=== PATIENT | female | born 1950 | race Caucasian/White ===

== ENCOUNTER → 2017-10-05 | Outpatient (CLI) | payer OTHER | END | disposition home or self-care (01) | LOC: C.LAB1850 11:06 | PROVIDERS: ATTEND Family Medicine | DX: E78.5 Hyperlipidemia, unspecified (principal) ==

== ENCOUNTER 2024-03-23 16:20 | Inpatient (IN) ==
[2024-03-23 17:03] LABS: Basophils # (auto) 0.07 K/uL (0.00-0.20); Basophils % (auto) 0.9 %; Eosinophils # (auto) 0.16 K/uL (0.00-0.50); Hematocrit (blood only) 39.7 % (37.0-47.0); Hemoglobin 13.4 g/dl (12.0-16.0); Immature Granulocytes # (auto) 0.02 K/uL (0.01-0.20); Immature Granulocytes % (auto) 0.2 %; Lymphocytes # (auto) 1.17 K/uL (1.20-3.40); Lymphocytes % (auto) 14.3 %; Mean Corpuscular Hemoglobin 30.9 pg (25.0-34.0); Mean Corpuscular Hgb Conc 33.8 g/dL (32.0-36.0); Mean Corpuscular Volume 91.5 fL (80.0-100.0); Mean Platelet Volume 11.2 fL (9.4-12.4); Monocytes # (auto) 0.54 K/uL (0.11-0.59); Monocytes % (auto) 6.6 %; Neutrophils # (auto) 6.21 K/uL (1.40-6.50); Platelet Count 212 K/uL (130-400); RDW Coefficient of Variation 12.4 % (11.5-14.5); RDW Standard Deviation 41.4 fL (36.4-46.3); Red Blood Count 4.34 M/uL (4.20-5.40); White Blood Count 8.17 K/ul (4.8-10.8)
--- NOTE | 2024-03-23 17:16 | Emergency Department Note ---
Impression & Plan Non-STEMI (non-ST elevated myocardial infarction), Hypertensive emergency ED Provider Note NAME: CJ ALTMAN AGE: 73 SEX: F : 1950 ARRIVES VIA: Walk-In INFORMANT: Patient, ED PROVIDER(S): Christelle Adorno MD CHIEF COMPLAINT: Hypertension HPI: This is a 73-year-old present for hypertension. Patient notes that around noon she had 1.5 hours worth of vertigo type symptoms, nausea without vomiting. She contacted her PCP who recommend she come to the ER to be seen for her elevated blood pressure. She reports the last week she was seen in the outpatient office and had blood pressure in the 180s started on lisinopril. She reports no current headache, vertigo. She does note slight nausea. No chest pain or shortness of breath. ROS: See above HPI for pertinent positives & negatives. A total of 10 systems reviewed and were otherwise negative. PAST MEDICAL HISTORY: See Below PAST SURGICAL HISTORY: See Below FAMILY HISTORY: See Below SOCIAL HISTORY: See Below HOME MEDICATIONS: See Below ALLERGIES: See Below VITALS: See Below PHYSICAL EXAMINATION: General: resting comfortably in no acute distress Head: Normocephalic and atraumatic Eyes: Normal inspection, extraocular muscles intact Ear, nose, throat: Normal external exam Neck: Normal range of motion Respiratory: lungs clear to auscultation bilaterally Cardiovascular: Regular rate/rhythm, no murmur GI: soft, nontender, no guarding or rebound Extremities: nontender, moves all extremities Neuro: The patient awake and alert, appropriately conversive, no focal deficits, symmetric faces, cranial 2 through 12 grossly intact Skin: Warm, dry, and intact MEDICAL DECISION MAKING: This is a 73-year-old female presenting for hypertension. Patient notes symptoms of vertigo initially, now persistent nausea without vomiting. She otherwise mentions she feels "off "but cannot elucidate further. Will do screening workup for hypertensive emergency such as stroke, press, ACS -Patient blood pressure has been elevated x 2 to over 220s systolic, consider hypertensive emergency. -ECG independently interpreted by me with sinus rhythm, rate of 91, left axis deviation, normal MN, normal QRS, normal QTc, no ST segment elevations consistent with STEMI criteria, T wave inversions in leads II and aVL depressions, ST elevation in leads III and aVF. Overall similar to EKG in 2020 -The blood work is reviewed showing no leukocytosis or anemia. Electrolyte within normal limits. -Patient's troponin is significant elevated to 685. -Due to patient presents, will start labetalol as well as heparin due to likely NSTEMI -[facility] care [facility] Differential diagnosis: Hypertension, stroke, press, ACS ER treatment provided: See below Independent History obtained from: [facility] interpreted by me: ECG: None Cardiac Monitoring: An order was placed for continuous cardiac monitoring. The monitor shows a rate of 82 with sinus rhythm. Laboratory studies: As stated above and show below. Imaging studies: See below. Critical Care Note: I have personally spent 33 minutes of critical care time in the direct management of this patient. This includes bedside care, interpretation of diagnostic studies, and testing, discussion with consultants, patient, and family members, and other required patient management activities. This 33 minutes is in excess of all separately billable procedures. 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) Murmur (Chronic) Medical History (Updated 03/23/24 @ 23:34 by Christelle Adorno MD) Elevated BP without diagnosis of hypertension Surgical History S/P cholecystectomy S/P hysterectomy S/P wisdom tooth extraction Family History Mother Hypertension Father Hypertension Denies family history of Ovarian cancer Prostate cancer Myocardial infarction Breast cancer Colorectal cancer Social History Smoking Status: Never smoker Second Hand Exposure: No; Do You Dip or Chew Tobacco: No; Hx Alcohol Use: No Hx Substance Use: No Preferred Language: Ken[place] Communication Ability: Effective Visual Impairment: No Limitations Hearing Ability: Normal Rn Sexual Assault Required: No Beliefs That Will Affect Care: None marital status: Current Living Situation: Spouse Current Living Situation Comment: lives at home with current occupational status: retired 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 Other Information That Helps Us Care for You: No Feels Safe at Home: Yes Safety Concerns: Feels Safe At This Time Childhood Exposure to Second-Hand Smoke: Yes Diet: regular Dental Care, Regularly: Yes Physical Activity Frequency: Does not Exercise Seatbelt Use: always Sunscreen Use: Yes Assistive Devices: Denture - Upper and Glasses Allergies Allergies Allergy/AdvReac Type Severity Reaction Status Date / Time Penicillins AdvReac Severe Hives Verified 03/23/24 20:36 Home Meds Home Medications Medication Instructions Recorded Confirmed lisinopril 10 mg tablet 10 mg PO QAM 03/23/24 03/23/24 Previous Rx's Medication Instructions Recorded sertraline 50 mg tablet 50 mg PO DAILY #30 tabs 12/17/23 Results & Data (ED) Vital Signs Vital Signs - 24 hr 03/23/24 16:23 03/23/24 16:41 03/23/24 16:49 Temperature 36.2 C L Temperature Source Temporal Artery Scan Pulse Rate 99 H 89 Pulse Rate [Finger] 92 H Pulse Rhythm Pulse Rhythm [Finger] Regular Pulse Strength [Finger] Normal Respiratory Rate 20 20 Respiratory Effort / Characteristics Non-Labored Respiratory Depth Normal Blood Pressure 222/97 H Blood Pressure [Right Arm] 226/112 H Blood Pressure Mean 138 Blood Pressure Mean [Right Arm] 150 Pulse Oximetry 97 96 Oxygen Delivery Method Room Air Room Air Sepsis Recent Fever Within 48 Hours No Sepsis New/Unexplained Change in Mental Status No Sepsis Action Taken by Nursing No Action Required 03/23/24 16:53 03/23/24 17:57 03/23/24 18:36 Temperature Temperature Source Pulse Rate 87 86 68 Pulse Rate [Finger] Pulse Rhythm Regular Pulse Rhythm [Finger] Pulse Strength [Finger] Respiratory Rate 20 Respiratory Effort / Characteristics Respiratory Depth Blood Pressure 198/110 H 238/103 H Blood Pressure [Right Arm] Blood Pressure Mean Blood Pressure Mean [Right Arm] Pulse Oximetry 95 Oxygen Delivery Method Room Air Sepsis Recent Fever Within 48 Hours Sepsis New/Unexplained Change in Mental Status Sepsis Action Taken by Nursing Laboratory Data 03/23/24 16:46 03/23/24 16:46 Lab Results 03/23/24 Range/Units 16:46 WBC 8.17 (4.8-10.8) K/ul RBC 4.34 (4.20-5.40) M/uL Hgb 13.4 (12.0-16.0) g/dl Hct 39.7 (37.0-47.0) % MCV 91.5 (80.0-100.0) fL MCH 30.9 (25.0-34.0) pg MCHC 33.8 (32.0-36.0) g/dL RDW Std Deviation 41.4 (36.4-46.3) fL RDW Coeff of [place] 12.4 (11.5-14.5) % Plt Count 212 (130-400) K/uL MPV 11.2 (9.4-12.4) fL Immature Gran % (Auto) 0.2 % Neut % (Auto) 76.0 % Lymph % (Auto) 14.3 % [place] % (Auto) 6.6 % Eos % (Auto) 2.0 % Baso % (Auto) 0.9 % Neut # (Auto) 6.21 (1.40-6.50) K/uL Lymph # (Auto) 1.17 L (1.20-3.40) K/uL [place] # (Auto) 0.54 (0.11-0.59) K/uL Eos # (Auto) 0.16 (0.00-0.50) K/uL Baso # (Auto) 0.07 (0.00-0.20) K/uL Immature Gran # (Auto) 0.02 (0.01-0.20) K/uL PT 10.8 (9.0-12.0) Seconds INR 1.0 (0.9-1.1) Sodium 139 (136-145) mmol/L Potassium 4.5 (3.5-5.1) mmol/L Chloride 108 H (98-107) mmol/L Carbon Dioxide 23 (21-32) mmol/L Anion Gap 8 (3-11) BUN 25 H (6-23) mg/dl Creatinine 1.04 (0.6-1.2) mg/dl Est Cr Clr Drug Dosing 53.1 ml/min Est GFR ( Amer) 62.6 ml/min Est GFR (Non-Af Amer) 54.0 ml/min BUN/Creatinine Ratio 24.0 H (10-20) Glucose 124 H (70-99(Fasting)) mg/dl Calcium 9.8 (8.6-10.3) mg/dl Total Bilirubin 0.8 (0.2-1.0) mg/dl AST 26 (13-39) U/L ALT 21 (7-52) U/L Alkaline Phosphatase 61 (34-104) U/L Troponin I High Sens 685.6 H* (0-14) pg/ml Total Protein 7.4 (6.0-8.3) gm/dl Albumin 4.9 (3.4-5.0) gm/dl Globulin 2.5 (2.5-4.0) gm/dl Albumin/Globulin Ratio 2.0 (0.9-2) Administered Medications Atorvastatin Calcium (Atorvastatin 40 Mg Tab) 80 mg PO QAM [facility] Stop: 04/22/24 20:23 Last Admin: 03/23/24 21:37 Dose: 80 mg Documented By: SHERIN Heparin Sodium/Dextrose (Heparin Sodium/Dextrose) 25,000 units in 500 mls @ 16 mls/hr IV .Q24H [facility]; Protocol Stop: 04/22/24 17:59 Last Admin: 03/23/24 18:03 Dose: 800 units/hr, 16 mls/hr Documented By: JOSE Co-signed By: CHIP Metoprolol Tartrate (Metoprolol Tartrate 25 Mg Tab) 25 mg PO BID [facility] Stop: 04/22/24 20:23 Last Admin: 03/23/24 21:40 Dose: 25 mg Documented By: Admin: 03/23/24 21:37 Dose: 25 mg Documented By: DEBBY Sertraline HCl (Sertraline Hcl 50 Mg Tablet) 50 mg PO DAILY [facility] Stop: 04/23/24 08:59 Last Admin: 03/23/24 21:38 Dose: 50 mg Documented By: DEBBY Discontinued Medications Aspirin (Aspirin 81 Mg Chew) 324 mg PO NOW STA Stop: 03/23/24 20:25 Last Admin: 03/23/24 21:39 Dose: 324 mg Documented By: DEBBY Heparin Sodium (Porcine) (Heparin Sod (Porcine) 1000 Unit/Ml) 4,000 units IV NOW ONE Stop: 03/23/24 17:55 Last Admin: 03/23/24 18:04 Dose: 4,000 units Documented By: JOSE Co-signed By: CHIP Labetalol HCl (Labetalol Hcl Iv 5 Mg/Ml 20ml) 10 mg IV NOW STA Stop: 03/23/24 17:39 Last Admin: 03/23/24 17:57 Dose: 10 mg Documented By: JOSE Imaging Data Radiologist's Impression: Chest X-Ray 03/23/24 16:43 XR chest 1V portable HISTORY: 73 years-old Female Hypertension acute hypertension COMPARISON: None TECHNIQUE: AP view of the chest FINDINGS: Cardiac silhouette is enlarged. No pneumothorax, or pleural effusion. The lungs are generally clear with mild bibasilar atelectasis. Cholecystectomy. Bones appear grossly intact. IMPRESSION: Cardiomegaly without acute process. ACT 112: Negative or not required by law. The above report was generated using voice recognition software. It may contain grammatical, syntax or spelling errors. Electronically signed by: Oj Love M.D. 03/23/2024 5:[address] 03/23/24 17:13 CT head/brain wo con CLINICAL HISTORY: 73 years-old Female with vertigo, htn. Hypertension with vertigo TECHNIQUE: Multiple axial CT images of the head were obtained without contrast. A dose lowering technique was utilized adhering to the principles of ALARA. CT DOSE: 547.75 mGy.cm COMPARISON: None. FINDINGS: No acute intracranial hemorrhage, midline shift, intracranial mass, hydrocephalus, territorial ischemia or abnormal extra-axial collection. Involutional changes with chronic microvascular ischemic disease. Calcifications of the falx cerebri. The calvarium is intact. The paranasal sinuses, mastoid air cells, and middle ear cavities are clear. IMPRESSION: No acute intracranial abnormality. ACT 112: Negative or not required by law. The above report was generated using voice recognition software. It may contain grammatical, syntax or spelling errors. Electronically signed by: Oj Love M.D. 03/23/2024 6:44 PM Discharge Plan Visit Data Chief Complaint: Hypertension Stated Complaint: HIGH BP, DIZZY, NAUSEA ED Provider: Christelle Adorno Discharge Problem: Non-STEMI (non-ST elevated myocardial infarction), Hypertensive emergency Patient Disposition: Admitted As Inpatient Discharge Instructions Interventions: ED Discharge Assessment Last Done: 03/23/24 20:09
[2024-03-23 17:19] LABS: Albumin Level 4.9 gm/dl (3.4-5.0); Bilirubin,Total 0.8 mg/dl (0.2-1.0); Calcium 9.8 mg/dl (8.6-10.3); Creatinine Clr Calc Pharmacy 53.1 ml/min; Est GFR (African American) 62.6 ml/min; Globulin 2.5 gm/dl (2.5-4.0); Potassium 4.5 mmol/L (3.5-5.1); Total Protein 7.4 gm/dl (6.0-8.3)
[2024-03-23 17:33] LABS: Troponin I High Sensitivity 685.6 pg/ml (0-14)
--- NOTE | 2024-03-23 17:36 | XRay Report ---
XR chest 1V portable HISTORY: 73 years-old Female Hypertension acute hypertension COMPARISON: None TECHNIQUE: AP view of the chest FINDINGS: Cardiac silhouette is enlarged. No pneumothorax, or pleural effusion. The lungs are generally clear w ith mild bibasilar atelectasis. Cholecystectomy. Bones appear grossly intact. IMPRESSION: Cardiomegaly without acute process. ACT 112: Negative or not required by law. The above report was generated using voice recognition software. It may contain grammatical, syntax o r spelling errors. Electronically signed by: Oj Love M.D. 03/23/2024 5:35 PM
[2024-03-23] MEDS ORDERED: Heparin IV Adult Wt-Based Low-Dose w/ INITIAL Bolus Protocol IV STA (17:38)
[2024-03-23] MEDS ORDERED: HEPARIN SOD (PORCINE) 1000 UNIT/ML IV ONE (17:54)
[2024-03-23] MEDS: LABETALOL HCL IV 5 MG/ML 20ML IV STA (17:57)
[2024-03-23] MEDS: HEPARIN SODIUM/DEXTROSE 25,000 UNITS/500 ML BAG IV SCH (18:03)
[2024-03-23] MEDS: HEPARIN SOD (PORCINE) 1000 UNIT/ML IV ONE (18:04)
[2024-03-23 18:13] LABS: Prothrombin Time 10.8 Seconds (9.0-12.0)
--- NOTE | 2024-03-23 18:46 | History & Physical Report ---
Date of Service March 23, 2024 Assessment & Plan (1) Non-STEMI (non-ST elevated myocardial infarction): (2) Uncontrolled hypertension: (3) Hypertrophic cardiomyopathy: (4) Hyperglycemia: (5) Hyperlipidemia: Plan Patient 73-year-old female is critically ill with laboratory evidence of non- STEMI with elevated troponins. Patient requires hospital level care IV medications, continuous monitoring and specialty consultation. Admit to a monitored unit Continue IV heparin Start Lopressor orally scheduled, as needed IV metoprolol Aspirin, statin, continue patient's prior to admission lisinopril, increase dose to 20 mg Echocardiogram Cardiology consultation Check hemoglobin A1c, lipid panel Follow-up head CT results Discussed advanced directives with patient, requests full code History of Present Illness Chief Complaint: Dizziness and nausea and elevated blood pressure Primary Care Provider: Daysi Benson DO Patient is a 73-year-old female who presents to the emergency room with above complaint. Patient has known she has had some high blood pressure for almost a year. Just established a new primary care provider this month and was started on lisinopril for elevated blood pressure. Today she could tell that something just was not right. She felt a little dizzy felt a little nauseated and had her neighbor bring her to the emergency room. In the emergency room was noted to be quite hypertensive and a significantly elevated troponin. She referred to our service for further evaluation. Time my evaluation patient states that her dizziness is somewhat better but still little nauseated. She denies any shortness of breath or chest pain. She states the symptoms started suddenly today. Yesterday and prior to she was eating and drinking well. Doing her usual activities. No new problems with her bowels or bladder. No swollen or tender joints. No swelling in her hands arms legs or feet. She denies any upper respiratory infection symptoms. She is aware that she has a hypertrophic cardiomyopathy. Has not had that followed up for a few years. She does state that she has a younger brother who just recently of some sort of heart issue she was not sure of the details. She has never smoked does not use any significant amounts of alcohol. Allergies Allergy/AdvReac Type Severity Reaction Status Date / Time Penicillins AdvReac Severe Hives Uncoded 03/23/24 18:17 Home Medications Medication Instructions Recorded Confirmed Type sertraline 50 mg tablet 50 mg PO DAILY #30 tabs 12/17/23 03/23/24 Rx lisinopril 10 mg tablet 10 mg PO QAM 03/23/24 03/23/24 History Past Med/Surg History Problem List (Updated 03/23/24 @ 18:44 by Christopher Lehman DO) Uncontrolled hypertension Non-STEMI (non-ST elevated myocardial infarction) HTN, goal below 140/90 Hyperglycemia Anxiety (Chronic) Hypertrophic cardiomyopathy (Chronic) Hyperlipidemia (Chronic) 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) Murmur (Chronic) Medical History (Updated 03/23/24 @ 18:44 by Christopher Lehman DO) Elevated BP without diagnosis of hypertension Surgical History S/P cholecystectomy S/P hysterectomy S/P wisdom tooth extraction Family History Mother Hypertension Father Hypertension Denies family history of Ovarian cancer Prostate cancer Myocardial infarction Breast cancer Colorectal cancer Social History Smoking Status: Never smoker Second Hand Exposure: No; Do You Dip or Chew Tobacco: No; Hx Alcohol Use: No Hx Substance Use: No Preferred Language: B[place] Communication Ability: Effective Visual Impairment: No Limitations Hearing Ability: Normal marital status: Current Living Situation: Spouse current occupational status: retired 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 Sclera clear Neck: Soft, no adenopathy Lungs: Clear to auscultation, decreased, no wheezes rales or rhonchi CV: S1-S2, regular, grade 4/6 blowing systolic murmur Abdomen: Soft, nontender, nondistended Extremities: No significant edema Musculoskeletal: No significant joint tenderness Neuro: No focal deficits Psych: Cooperative, normal mood Results & Data Results & Data Vital Signs (Past 12 Hours) Vital Signs Temp Pulse Pulse Resp BP BP Pulse Ox 08/14/24 17:57 86 198/110 H 03/23/24 16:53 87 20 95 03/23/24 16:49 89 03/23/24 16:41 92 H 20 226/112 H 96 03/23/24 16:23 36.2 C L 99 H 20 222/97 H 97 O2 Del Method 03/23/24 17:57 03/23/24 16:53 Room Air 03/23/24 16:49 03/23/24 16:41 Room Air 03/23/24 16:23 Room Air Diagnostic Findings Reviewed imaging, laboratory and diagnostic studies. Pertinent findings as below. Personally reviewed chest x-ray imaging, no acute consolidation, cardiomegaly Personally reviewed EKG sinus rhythm with sinus arrhythmia, left ventricular hypertrophy, left axis deviation Glucose 124 Initial troponin 685.6 Code Status & VTE Plan VTE Prophylaxis Plan VTE Prophylaxis will be ordered: Yes
--- NOTE | 2024-03-23 18:47 | CT Scan Report ---
CT head/brain wo con CLINICAL HISTORY: 73 years-old Female with vertigo, htn. Hypertension with vertigo TECHNIQUE: Multiple axial CT images of the head were obtained without contrast. A dose lowering tech nique was utilized adhering to the principles of ALARA. CT DOSE: 547.75 mGy.cm COMPARISON: None. FINDINGS: No acute intracranial hemorrhage, midline shift, intracranial mass, hydrocephalus, territorial ischem ia or abnormal extra-axial collection. Involutional changes with chronic microvascular ischemic disea se. Calcifications of the falx cerebri. The calvarium is intact. The paranasal sinuses, mastoid air cells, and middle ear cavities are clear . IMPRESSION: No acute intracranial abnormality. ACT 112: Negative or not required by law. The above report was generated using voice recognition software. It may contain grammatical, syntax o r spelling errors. Electronically signed by: Oj Love M.D. 03/23/2024 6:44 PM
[2024-03-23] MEDS ORDERED: ACETAMINOPHEN 325 MG TAB PO PRN (20:24)
[2024-03-23] MEDS ORDERED: MoRPHine SULFATE 2 MG/ML CARP IV PRN (20:24)
[2024-03-23] MEDS ORDERED: ONDANSETRON INJ 2 MG/ML 2 ML VIAL IV PRN (20:24)
[2024-03-23] MEDS ORDERED: NITROGLYCERIN SL 0.4 MG/TAB TAB SL PRN (20:24)
[2024-03-23] MEDS ORDERED: MAGNESIUM HYDROXIDE SUSP 30 ML UDC PO PRN (20:24)
[2024-03-23] MEDS: METOPROLOL TARTRATE 25 MG TAB PO SCH (21:37)
[2024-03-23] MEDS: ATORVASTATIN 40 MG TAB PO SCH (21:37)
[2024-03-23] MEDS: SERTRALINE HCL 50 MG TABLET PO SCH (21:38)
[2024-03-23] MEDS: ASPIRIN 81 MG CHEW PO STA (21:39)
[2024-03-24] MEDS: METOPROLOL TARTRATE 1 MG/ML VIAL IV PRN (01:16)
[2024-03-24 01:32] LABS: ANTI-Xa, UFH(UnfractionatedHep 0.41 IU/ml (0.3-0.7)
[2024-03-24] MEDS: lisinopril 20 MG TAB PO STA (02:10)
--- OUTSIDE RECORDS SUMMARY | 2024-03-24 03:00 | External Medical Summary | Summary of Care ---
Author Name Unknown Organization [facility] Address [address] [place] [address] Phone [phone] Care Team Providers Care Timber Inspector Name Role Phone Daysi Benson DO Primary Care Provider [phone] Reason for Referral * Precert (Within 10 days (routine)) - Authorized Specialty Diagnoses / Procedures Referred By Contac t Referred To Contact Cardiac Studies Diagnoses HTN, goal below 140/90 Heart murmur Procedures ECHO, COMPLETE (2D), TRANS-THORACIC Daysi Benson DO [address] [place] [address] Referral ID Status Reason Start Date Expiration Date V isits Requested Visits Authorized [id number] Authorized Precert 03/14/2024 999 999 Reason for Visit * Reason Comments NEW PATIENT Encounter Details Date Type Department Care Team (Latest Contact Info) Description 03/14/2024 10:40 AM EDT Office Visit Family Practice [address] [facility], [place] [address] [place] [address] Daysi Benson DO [address] [place] [address] Dysuria*; HTN, goal below 140/90; Heart murmur; Caregiver stress; Screening for cardiovascular condition; Risk and functional assessment Allergies Active Allergy Reactions Criticality Noted Date Comments Penicillins Hives High 10/09/2014 documented as of this encounter (statuses as of 03/15/2024) Medications Medication Sig Dispensed Refills Start Date End Date Status Sertraline HCl 50 MG Oral Tablet (Zoloft) Take 1 Tablet by mouth every evening. 02/14/2023 Active Sulfamethoxazole- Trimethoprim 800-160 MG Oral Tablet (Bactrim DS)Indications:Dy suria Take 1 Tablet by mouth in the morning and 1 Tablet before bedtime. Do all this for 3 days. Until gone. 6 Tablet 03/14/2024 03/17/2024 Active Lisinopril 10 MG Oral Tablet (Prinivil)Indicat ions:HTN, goal below 140/90 Take 1 Tablet by mouth in the morning. 30 Tablet 1 03/14/2024 Active Meloxicam 15 MG Oral TabletIndications :Sacroiliitis (HCC) Take 1 Tablet by mouth in the morning. 30 Tablet 2 01/01/2024 03/14/2024 Discontinued (Medication List Clean Up) predniSONE 20 MG Oral Tablet (Deltasone)Indica tions:Allergic contact dermatitis due to plants, except food Take 2 tablets by mouth once daily x 2 days, then 1 tablet by mouth once daily x 2 days, then 1/2 tablet by mouth once daily x 2 days. 7 Tablet 01/14/2024 03/14/2024 Discontinued (Medication List Clean Up) documented as of this encounter (statuses as of 03/15/2024) Active Problems Problem Noted Date Diagnosed Date HTN, goal below 140/90 03/14/2024 documented as of this encounter (statuses as of 03/15/2024) Immunizations Name Administration Dates Next Due TDAP (age 10 and older)(Boostrix) 12/25/2014 documented as of this encounter Social History Tobacco Use Types Packs/Day Years Used Date Smoking Tobacco: Never Smokeless Tobacco: Never Tobacco Cessation:Counseling Given: Yes Alcohol Use Standard Drinks/Week Comments No 0 (1 standard drink = 0.6 oz pur e alcohol) PHQ-2 Answer Date Recorded PHQ Adult Total Score 3 03/14/2024 Hunger Vital Sign Answer Date Recorded Within the past 12 months, y ou worried that your food would run out before you got the money to buy more. Never true 03/14/20 24 Within the past 12 months, t he food you bought just didn't last and you didn't have money to get more. Never true 03/14/2024 Childcare Answer Date Recorded Do you feel overwhelmed with taking care of a child, family member or friend? Yes 03/14/2024 Does your family need help f inding childcare? (Household - for ages 0-17 years) Not on file 03/14/2024 Clothing Answer Date Recorded Have you been unable to get clothing when it was really needed? No 03/14/2024 Is your family able to get c lothes or diapers when needed? (Household - for ages 0-17 years) Not on file 03/14/2024 Personal Safety Answer Date Recorded Do you feel unsafe or have concerns for your saf ety? No 03/14/2024 Do you have concerns for you r family's safety? (Household - for ages 0-17 years) Not on file 03/14/2024 Utilities Answer Date Recorded Do you have trouble paying y our heating, water, or electric bill? No 03/14/2024 Is your family able to pay t he heat, water, or electric bill? (Household - for ages 0-17 years) Not on file 03/14/2024 Does your family have access to good internet? (Household - for ages 0-17 years) Not on file 03/14/2024 Employment Status Answer Date Recorded Are you unemployed or without regular income? No 03/14/2024 Does the household have a re gular source of income? (Household - for ages 0-17 years) Not on file 03/14/2024 Social Connections Answer Date Recorded How often do you feel lonely or isolated from those around you? Sometimes 03/14/2024 Financial Resource Strain Answer Date R ecorded Do you have any trouble payi ng for your medications, or do you think you might in the future? No 03/14/2024 Does your family have troubl e paying for medicine? (Household - for ages 0-17 years) Not on file 03/14/2024 Transportation Needs Answer Date Record ed Do you have trouble getting a ride to medical visits or work? (Adult - for ages 18 years and over) Not on file 03/14/2024 Does your family have a hard time getting a ride to doctors visits? (Household - for ages 0-17 years) Not on file 03/14/2024 Has lack of transportation k ept you from medical appointments, meetings, work, or from getting things needed for daily living? Check all that apply. No 03/14/2024 Do you (or your family) have trouble finding or paying for a ride (transportation)? (Household - for ages 0-17 years) Not on file 03/14/2024 Housing Stability Answer Date Recorded Do you currently live in a s helter or have no steady place to sleep at night? No 03/14/2024 Do you think you are at risk of becoming homeless? (Adult - for ages 18 years and over) Not on file 03/14/2024 Does your family worry about paying for your home or becoming homeless? (Household - for ages 0-17 years) Not on file 0 03/14/2024 Are you homeless or worried that you might be in the future? No 03/14/2024 Are you (or your family) mari eless or worried that you might be in the future? (Household - for ages 0-17 years) Not on file Food Insecurity Answer Date Recorded Do you need food for this week? No 03/14/2024 Are you able to get enough f ood for your family? (Household - for ages 0-17 years) Not on file 03/14/2024 Does your family need food t his week? (Household - for ages 0-17 years) Not on file 03/14/2024 Do you always have enough fo od for your family? (Household - for ages 0-17 years) Not on file 03/14/2024 Sex and Gender Information Value Date Recorded Sex Assigned at Not on file Gender Identity Not on file Sexual Orientation Not on file Job Start Date Occupation Industry Not on file Not on file Not on file documented as of this encounter Last Filed Vital Signs Vital Sign Reading Time Taken Comments Blood Pressure 180/96 03/14/2024 10:51 AM EDT Pulse 87 03/14/2024 10:51 AM EDT Temperature 36.7 C (98 F) 03/14/2024 10:51 AM EDT Respiratory Rate 14 03/14/2024 10:51 AM EDT Oxygen Saturation 98% 03/14/2024 10:51 AM EDT Inhaled Oxygen Concentration - - Weight 81.7 kg (180 lb 3.2 oz) 03/14/2024 10:51 AM EDT Height 167.6 cm (5' 6") 03/14/2024 10:51 AM EDT Body Mass Index 29.09 03/14/2024 10:51 AM EDT documented in this encounter Patient Instructions * Patient Instructions* Shannon Modi LPN - 03/14/2024 10:45 AM EDT Patient Instructions - Fall Prevention (This education is for all patients over 65 regardless of symptoms) Remember to take your current medications as prescribed. In order to prevent falls, you are encouraged to: Exercise Utilize assistive/adaptive devices Avoid multifocal lenses when walking Avoid hazards in home Maintain a regular toileting schedule Any questions please contact our office. Preventing Falls in the Home (This education is for all patients over 65 regardless of symptoms) As you get older, falls are more likely. Thats because your reaction time slows. Your muscles and joints may also get stiffer, making them less flexible. Illness, medications, and vision changes can also affect your balance. A fall could leave you unable to live on your own. To make your home safer, follow these tips: Floors Put nonskid pads under area rugs Remove throw rugs Replace worn floor coverings Tack carpets firmly to each step on carpeted stairs. Put nonskid strips on the edges of uncarpeted stairs Keep floors and stairs free of clutter and cords Arrange furniture so there are clear pathways Clean up any spills right away Bathrooms Install grab bars in the tub or shower Apply nonskid strips or put a nonskid rubber mat in the tub or shower Sit on a bath chair to bathe Use bathmats with nonskid backing Lighting Keep a flashlight in each room Put a nightlight along the pathway between the bedroom and the bathroom [employer] Patient Education Copyright 2008 - 2010 [employer] except where otherwise noted Preventing Falls: Exercises to Improve Balance, Flexibility, Strength, and Staying Power (This education is for all patients over 65 regardless of symptoms) Certain types of exercises may help make you less likely to fall. Try the ones below. Or do other exercises that your healthcare provider suggests. Depending on your health, you may need to start slowly. Dont let that stop you. Even small amounts of exercise can help you. Be sure to talk to yourhealthcare provider before starting any exercise program. Improve Balance Many types of exercise can help improve balance. Santo chi and yoga are good examples. Heres another one to try. You can do it anytime and almost anywhere. Stand next to a counter or solid support. Push yourself up onto your tiptoes. Hold for 5 seconds. If you start to lose your balance, hold on to the counter. Rest and repeat 5 times. Work up to holding for 20 to 30 seconds, if you can. Increase Flexibility Being more flexible makes it easier for you to move around safely. Try exercises like the seated hamstring stretch. Sit in a chair and put one foot on a stool. Straighten your leg and reach with both hands down either side of your leg. Reach as far down your leg as you can. Hold for about 20 seconds. Go back to the starting position. Then repeat 5 times. Switch legs. Build Strength Resistance exercises help build strength. You can do them without equipment. Or you can use weights, elastic bands, or special machines. One such exercise is called the biceps curl. You can hold a 1 pound weight or even a can of soup. Do this exercise at least 3 times a week. Strive for everyday. Sit up straight in a chair. Keep your elbow close to your body and your wrist straight. Bend your arm, moving your hand up to your shoulder. Then slowly lower your arm. Repeat 5 times. Switch to the other arm. Build Your Staying Power Aerobic exercises make your heart and lungs stronger so you can keep moving longer. Walking and swimming are two of the best types of exercises you can do. Using a stationary bike is great, too. Find an aerobic exercise that you enjoy. Start slowly and build up. Even 5 minutes is helpful. Aimfor a goal of 30 minutes, at least 3 times a week. You dont have to do 30 minutes in one session. Break it up and walk a little throughout the day. More Helpful Tips Start easy. Slowly work up to doing more. Talk with your healthcare provider about the best exercises for you. Call senior centers or health clubs about exercise programs. If needed, have a family member watch you walk every so often to check your stability. Exercise with a friend. Choose an activity you both enjoy. Try exercises that you can do anytime, anywhere. Here are two examples. Have someone with you when you first try these: Practice walking by placing one foot right in front of the other. Stand up and sit down 10 times. Repeat this throughout the day. [employer] Patient Education Copyright 2009 - 2010 [employer] except where otherwise noted. Preventing Falls: Moving Safely Using a Cane or Walker (This education is for all patients over 65 regardless of symptoms) Keep the cane away from your feet so you dont trip. A walking aid, such as a cane or walker, can help you stay more independent and avoid falls. Remember to keep your walking aid within easy reach when youre in a chair or in bed. And learn how to use it safely so you dont injure yourself. Using a Cane If you have a stronger side, hold the cane on that side. Get your balance. Move the cane and your weaker leg forward. Support your weight on both the cane and your weaker side. Step with your stronger leg. Start again from step 1. If youre using a folding walker, be sure you know how to lock it open. Check that its locked open before each use. Using a Walker Roll the walker (or lift it, if youre using one without wheels) forward about 12 inches. Step forward with your weaker leg first. Use the walker to help keep your balance. Bring your other foot forward to the center of the walker. Start again from step 1. Helpful Tips Check with your healthcare provider about the right walking aid to use. Ask about a walker with a seat attached. Check the tips of your cane or walker to make sure they have nonskid covers. Move slowly from room to room. Dont borden. Sit down to get dressed. Use a deja pack or backpack to keep your hands free. Get help for jobs that mean climbing, even on a stepstool. [employer] Patient Education Copyright 2008 - 2010 [employer] except where otherwise noted. Urinary Incontinence Plan of Care Documentation: (This education is for all patients over 65 regardless of symptoms) Current medications reconciled. Patient encouraged to: Practice kegal exercises Provide education materials Use the restroom every 2 hours throughout the day Limit caffeine, alcohol, spicy foods and acidic foods Keep a bladder diary Limit fluid intake 3-4 hours before bed Lose weight Prevent constipation Take fluid pills at a time when you can get to the bathroom quickly Control sugar better if diabetic Limit fluid intake to 60 oz. per day Wear support stockings (TEDs)if you have edema Shannon Modi LPN 03/14/2024 Kegel Exercises Kegel exercises dont require special clothing or equipment. Theyre easy to learn and simple to do. And if you do them right, no one can tell youre doing them, so they can be done almost anywhere. Your doctor, nurse, or physical therapist can answer any questions you have and help you get started. A Weak Pelvic Floor The pelvic floor muscles may weaken due to aging, and vaginal childbirth, injury, surgery, chronic cough, or lack of exercise. If the pelvic floor is weak, your bladder and other pelvic organs may sag out of place. The urethra may also open too easily and allow urine to leak out. Kegel exercises can help you strengthen your pelvic floor muscles so they can better support the pelvic organs and control urine flow. How Kegel Exercises Are Done Try each of the Kegel exercises described below. When youre doing them, try not to move your leg, buttock, or stomach muscles. While youre urinating, try to stop the flow of urine. Start and stop it as often as you can. Contract as if you were stopping your urine stream, but do it when youre not urinating. Tighten your rectum as if trying not to pass gas. Contract your anus, but dont move your buttocks. Helpful Hints Do your Kegels as often as you can. The more you do them, the faster youll feel the results. Pick an activity you do often as a reminder. For instance, do your Kegels every time you sit down. Tighten your pelvic floor before you sneeze, get up from a chair, cough, laugh, or lift. This protects your pelvic floor from injury and can help prevent urine leakage. Try to hold each Kegel for a slow count to five. You probably wont be able to hold them for thatlong at first, but keep practicing. It will get easier as your pelvic floor gets stronger. Eventually, special weights that you place in your vagina may be recommended to help make your Kegels even more effective. [employer] Patient Education Copyright 2009 - 2011 [employer] except where otherwise noted. Here are some helpful tips for your urinary incontinence: (This education is for all patients over 65 regardless of symptoms) Practice Kegel exercises Use the restroom every 2 hours throughout the day Limit caffeine, alcohol, spicy foods, and acidic foods Keep a bladder diary Limit fluid intake 3-4 hours before bed Lose weight Prevent constipation Take fluid pills at a time when can get to the bathroom quickly Control sugar better if diabetic Limit fluid intake to 60 oz. per day Any questions, please feel free to contact our office. documented in this encounter Progress Notes * Jocelyn Chris RN - 03/15/2024 2:51 PM EDT RN Lead: Jocelyn Chris RN Date: 03/15/2024 Patient seen for ASC: HTN<140/90 Connected with patient via phone. Verified patient name/. Assessment: Pt. seen: 03/14/2024 Treatment plan: COMPREHENSIVE METABOLIC PANEL, CBC WITH WBC DIFFERENTIAL, EKG, EKG, ECHO, COMPLETE (2D), TRANS-THORACIC, Lisinopril 10 MG Oral Tablet (Prinivil) BP significantly elevated today. She will start lisinopril. Will likely need to increase. Status update: pt states she picked the lisinopril up yesterday and started it yesterday. She has an appt scheduled for a nurse visit to recheck BP o 03/28/24. Denies any questions at this time. Pt tocall sooner with any questions or concerns. Medication Reconciliation: Medication Reconciliation completed: Yes Careteam: Vegetables Cook: No Please let patient know you will be sharing with the CM and they may contact patient for future follow up. If patient is case managed, please route note to CM. If patient requires further follow-up for this ASC episode, please reach out directly to the case packer and sealer via Teams or [employer]. Plan for Future Contacts: Plan to follow up Keep scheduled appointment -nurse visit 03/28/24 Advancement/Closure Plan: Patient provided contact information and encouraged to call CM or clinic directly with any changes in condition. * Daysi Benson DO - 03/14/2024 10:18 AM EDT SUBJECTIVE: Chief Complaint Patient presents with NEW PATIENT HPI: Jolie Izquierdo is a 73 year old female who presents today to establish care. Pt was previously seeing Dr. Galan. Pt's BP increased today. She notes that it has been elevated at multiple last visits. She notes that can feel off at times. No chronic headaches. No blurry vision. No dizziness. She will take ibuprofen a couple of times a day. Pt was told she had a heart murmur but that it was not of concern. Has not had an echo in years. Pt has had some urinary symptoms. She states that on Thursday, she had a sudden urge and burning. This went on all day. She had brown on Thursday. She had some pink when wiping on Thursday. She is not sure what caused it. She had some right flank pain. No fever. No frequency or urgency now. Pt notes she will feel down at times. She thinks that the sertraline helps. 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 PHM: There is no problem list on file for this patient. Current Outpatient Medications Medication Sig Dispense Refill Sertraline HCl 50 MG Oral Tablet (Zoloft) Take 1 Tablet by mouth every evening. DULoxetine HCl 30 MG Oral Capsule Delayed Release Particles (Cymbalta) Take 1 Capsule by mouth in the morning. (Patient not taking: Reported on 03/14/2024) diphenhydrAMINE-Acetaminophen 12.5-500 MG Oral Tablet Take 1 Tablet by mouth at bedtime. Beet Root 500 MG Oral Capsule Take 2 Each by mouth in the morning. (Gummies). No current facility-administered medications for this visit. Past Medical History: Diagnosis Date Depression Sciatica Past Surgical History: Procedure Laterality Date LAPAROSCOPY; CHOLECYSTECTOMY SACROILIAC JOINT INJECT W/GUIDANCE 08/14/2023 INJECTION SACROILIAC JOINT performed by Pablito Hall DO at OR [facility] TOTAL ABD HYSTERECTOMY W/WO REMOVAL OF TUBE(S) with oophorectomy Review of patient's allergies indicates: Allergen Reactions Penicillins Hives No family history on file. No family status information on file. Social History Tobacco Use Smoking status: Never Smokeless tobacco: Never Substance Use Topics Alcohol use: No Vaping/E-Cigarette Use Vaping/E-Cigarette Substances Vaping/E-Cigarette Devices REVIEW OF SYSTEMS: Review of Systems Constitutional: Negative for activity change, chills, diaphoresis, fatigue and fever. HENT: Negative for congestion, ear discharge, ear pain, hearing loss and tinnitus. Eyes: Negative for pain, discharge, redness and visual disturbance. Respiratory: Negative for cough, chest tightness, shortness of breath and wheezing. Cardiovascular: Negative for chest pain, palpitations and leg swelling. Gastrointestinal: Negative for abdominal pain, constipation, diarrhea, nausea and vomiting. Genitourinary: As per HPI Musculoskeletal: Negative for arthralgias, back pain, gait problem and joint swelling. Skin: Negative for color change, pallor and rash. Neurological: Negative for dizziness, weakness, numbness and headaches. Hematological: Negative for adenopathy. Psychiatric/Behavioral: Negative for behavioral problems and confusion. The patient is not nervous/anxious. As per HPI OBJECTIVE: BP 180/96 (BP Site: Left Arm, BP Position: Sitting, BP Cuff Size: Regular) | Pulse 87 | Temp 36.7 C (98 F) (Tympanic) | Resp 14 | Ht 1.676 m (5' 6") | Wt 81.7 kg (180 lb 3.2 oz) | SpO2 98% | BMI 29.09 kg/m | BSA 1.95 m PHYSICAL EXAM: Physical Exam Constitutional: General: She is not in acute distress. Appearance: She is well-developed. HENT: Head: Normocephalic and atraumatic. Right Ear: Tympanic membrane, ear canal and external ear normal. Left Ear: Tympanic membrane, ear canal and external ear normal. Nose: Nose normal. No mucosal edema or rhinorrhea. Mouth/Throat: Pharynx: No oropharyngeal exudate. Eyes: General: No scleral icterus. Conjunctiva/sclera: Conjunctivae normal. Pupils: Pupils are equal, round, and reactive to light. Neck: Thyroid: No thyromegaly. Cardiovascular: Rate and Rhythm: Normal rate and regular rhythm. Heart sounds: Murmur (3/6SEM) heard. No friction rub. No gallop. Pulmonary: Effort: No respiratory distress. Breath sounds: Normal breath sounds. No wheezing, rhonchi or rales. Chest: Chest wall: No tenderness. Abdominal: General: Bowel sounds are normal. Palpations: Abdomen is soft. There is no mass. Tenderness: There is no abdominal tenderness. There is no guarding. Musculoskeletal: General: No tenderness or deformity. Normal range of motion. Cervical back: Normal range of motion and neck supple. Lymphadenopathy: Cervical: No cervical adenopathy. Skin: General: Skin is warm and dry. Findings: No rash. Neurological: Mental Status: She is alert and oriented to person, place, and time. Psychiatric: Speech: Speech normal. Behavior: Behavior normal. Thought Content: Thought content normal. ASSESSMENT/PLAN: (R30.0) Dysuria (primary encounter diagnosis) Plan: URINALYSIS, POINT OF CARE (ENTER/EDIT), Sulfamethoxazole-Trimethoprim 800-160 MG Oral Tablet (Bactrim DS), CULTURE, URINE, QUANTITATIVE UA with leuks and blood. Send culture. Start bactrim. Will await results. (I10) HTN, goal below 140/90 Plan: COMPREHENSIVE METABOLIC PANEL, CBC WITH WBC DIFFERENTIAL, EKG, EKG, ECHO, COMPLETE (2D), TRANS-THORACIC, Lisinopril 10 MG Oral Tablet (Prinivil) BP significantly elevated today. She will start lisinopril. Will likely need to increase. (R01.1) Heart murmur Plan: ECHO, COMPLETE (2D), TRANS-THORACIC Pt with significant murmur on exam. Check echo. (Z63.6) Caregiver stress Plan: Pt will start lisinopril and then start duloxetine in 1 week. Continue on sertraline. (Z13.6) Screening for cardiovascular condition Plan: LIPID PANEL WITH DIRECT LDL IF TG IS HIGH Pt will complete lipid panel. (Z13.9) Risk and functional assessment Plan: see nursing note. Follow-up: 6 weeks, NV 2 weeks for BP check. Total time today including reviewing chart before the visit, pertinent labs, imaging reports, face to face time, and documentation time was 48 minutes. Daysi Benson DO documented in this encounter Procedure Notes * Malachi Otero DO - 03/14/2024 11:34 AM EDTAssociated Order(s): EKG REASON FOR STUDY: elevated BP;elevated BP CONCLUSIONS: Normal sinus rhythm Possible Left atrial enlargement Left axis deviation Left ventricular hypertrophy with secondary repolarization abnormality Abnormal ECG Ventricular Rate: 76 Atrial Rate: 76 NC Interval: 152 QRS Duration: 98 QT/QTc: 416/468 ms P-R-T [place]: 25 : -37 : 122 degrees documented in this encounter Nursing Notes * Shannon Modi LPN - 03/14/2024 11:28 AM EDT .ekg * Shannon Modi LPN - 03/14/2024 10:44 AM EDT Patient here to establish as a new patient. Reports she has had back pain ongoing for a while. Reports Thursday she had Right flank pain, did have some blood with urination as well as frequency. Report symptoms have resolved. Patient has been verbally educated on the need or importance of Breast Cancer Screening, Colon Cancer Screening, Dexa Scan, Hepatitis C, and Immunizations: RSV, Pneumococcal, Zoster and has declined topic(s). documented in this encounter Plan of Treatment Upcoming Encounters Date Type Department Care Team (Late st Contact Info) Description 03/28/2024 2:30 PM EDT Nurse Only Family Practice 65 [facility] [address] [place] [phone] College, Nurse Fam Prac [address] [address] 03/28/2024 3:30 PM EDT Cardiac Studies Cardiac Studies, [facility] 132 [facility] [place] [address] 06/14/2024 2:20 PM EST Office Visit Family Practice 65 [facility] 293 [place] [phone] Daysi Benson DO [address] [place] [address] Pending Results Name Type Priority Associated Diagnoses Date /Time CULTURE, URINE, QUANTITATIVE Lab Routine Dysuria 03/14/2024 11:38 AM EDT Scheduled Orders Name Type Priority Associated Diagnoses Orde r Schedule URINALYSIS, POINT OF CARE (ENTER/EDIT) Point of Care Testing Routine Dysuria Ordered: 03/14/2024 LIPID PANEL WITH DIRECT LDL IF TG IS HIGH Lab Routine Screening for cardiovascular condition Expected: 03/14/2024 (Approximate), Expires: 03/14/2025 COMPREHENSIVE METABOLIC PANEL Lab Routine HTN, goal below 140/90 Expected: 03/14/2024 (Approximate), Expires: 03/14/2025 CBC WITH WBC DIFFERENTIAL Lab Routine HTN, goal below 140/90 Expected: 03/14/2024 (Approximate), Expires: 03/14/2025 ECHO, COMPLETE (2D), TRANS-THORACIC Echocardiology Routine HTN, goal below 140/90 Heart murmur Expected: 03/14/2024, Expires: 04/14/2026 Health Maintenance Due Date Last Done Comments Lipid Panel 1952 Albumin/Creatinine Ratio 1970 Cologuard 1997 Colonoscopy 1997 Fecal Occult Blood Test 1997 Sigmoidoscopy 1997 Adult Wellness Visit 2018 COVID-19 Vaccine ( - 2022-2 4 season) 2023 Colorectal Cancer Screening 03/15/2024 Postponed from 1997 (Patient Declined After Education) DXA Scan 03/15/2024 Postponed from 2017 (Patient Declined After Education) Hepatitis C Screening 03/15/2024 Postpo consuelo from 1970 (Patient Declined After Education) Mammogram 03/15/2024 Postponed from 1992 (Patient Declined After Education) Pneumococcal Vaccine: 65+ Years (1 of 1 - PCV) 03/15/2024 Postponed from 10/08 (Patient Declined After Education) Zoster Vaccines (1 of 2) 03/15/2024 Pos tponed from 2002 (Patient Declined After Education) Influenza Vaccine (FLU shot) (#1) 2024 GFR 12/24/2024 12/25/2023 DTaP,Tdap,and Td Vaccines (2 - Td or Tdap) 12/25/2024 12/25/2014 Depression Screening 03/14/2025 03/14/2024, 03/14/2024 HPV (Gardasil) Vaccine Aged Out No lo nger eligible based on patient's age to complete this topic Hepatitis B Vaccine Aged Out No longe r eligible based on patient's age to complete this topic MENINGOCOCCAL (MENACTRA/MENVEO) Aged Out No longer eligible b ased on patient's age to complete this topic documented as of this encounter Medical Devices Not on filedocumented as of this encounter Procedures Procedure Name Priority Date/Time Associated Diagnosis Comments NC ECG ROUTINE ECG W/LEAST 12 LDS I&R ONLY Routine 03/14/2024 11:34 AM EDT HTN, goal below 140/90 URINALYSIS, POINT OF CARE COTY 03/14/2024 11:10 AM EDT documented in this encounter Results * EKG (03/14/2024 11:34 AM EDT) 03/14/2024 11:3 4 AM EDT Narrative Procedure Note Malachi Otero DO - 03/14/2024 11:34 AM EDT REASON FOR STUDY: elevated BP;elevated BP CONCLUSIONS: Normal sinus rhythm Possible Left atrial enlargement Left axis deviation Left ventricular hypertrophy with secondary repolarization abnormality Abnormal ECG Ventricular Rate: 76 Atrial Rate: 76 NC Interval: 152 QRS Duration: 98 QT/QTc: 416/468 ms P-R-T [place]: 25 : -37 : 122 degrees Daysi Benson DO EKG [facility] * (ABNORMAL) URINALYSIS, POINT OF CARE (03/14/2024 11:10 AM EDT) Color, Urine Dark Yellow(A) Light Yellow, Yellow 03/14/2024 12:06 PM EDT [facility] Clarity, Urine Slightly Cloudy(A) Clear 03/14/2024 12:06 PM EDT [facility] Glucose, Urine Negative Negative mg/dL 03/14/2024 12:06 PM EDT [facility] Bilirubin, Urine Negative Negative 03/14/2024 12:06 PM EDT [place] [address] Ketone, Urine Negative Negative mg/dL 03/14/2024 12:06 PM EDT [place] [address] Specific Girdler, Urine >=1.030 1.003 - 1.030 03/14/2024 12:06 PM EDT [place] [address] Blood, Urine Small(A) Negative 03/14/2024 12:06 PM EDT [place] [address] pH, Urine 5.5 5.0, 5.5, 6.0, 6.5, 7.0, 7.5 units 03/14/2024 12:06 PM EDT [place] [address] Protein, Urine Negative Negative mg/dL 03/14/2024 12:06 PM EDT [place] [address] Urobilinogen, Urine 0.2 0.2, 1.0 mg/dL 03/14/2024 12:06 PM EDT [place] [address] Nitrite, Urine Negative Negative 03/14/2024 12:06 PM EDT [place] [address] Esterase, Urine Trace(A) Negative 03/14/2024 12:06 PM EDT [place] [address] Urine 03/14/2024 11:1 0 AM EDT 03/14/2024 12:06 PM EDT Daysi Benson DO LAB POINT OF CARE TE ST DOCKED DEVICE UNSOLICITED RESULTS [place] [address] [address] [place] [address] documented in this encounter Visit Diagnoses Diagnosis Dysuria- Primary HTN, goal below 140/90 Unspecified essential hypertension Heart murmur Undiagnosed cardiac murmurs Caregiver stress Other health problem within the family Screening for cardiovascular condition Screening for other and unspecified cardiovascular conditions Risk and functional assessment Screening for unspecified condition documented in this encounter Care Teams Timber Inspector Relationship Specialty Start Date End Date Daysi Benson DO [facility] [address] PCP - General Family Medicine 03/14/24 documented as of this encounter
--- OUTSIDE RECORDS SUMMARY | 2024-03-24 03:00 | External Medical Summary | Summary of Care ---
Author Name Unknown Organization [facility] Address [address] [place] [address] Phone [phone] Care Team Providers Care Multi Care Technician Name Role Phone Daysi Benson DO Primary Care Provider Reason for Visit * Reason Onset Date Comments Test Results 03/15/202403/16 Encounter Details Date Type Department Care Team (Late st Contact Info) Description 03/15/2024 Telephone Family Practice [address] [facility] [place] [address] [place] [address] Daysi Benson DO [address] [place] [address] Test Results (03/16) Allergies Active Allergy Reactions Criticality Noted Date Comments Penicillins Hives High 10/09/2014 documented as of this encounter (statuses as of 03/16/2024) Medications Medication Sig Dispensed Refills Start Date End Date Status Sertraline HCl 50 MG Oral Tablet (Zoloft) Take 1 Tablet by mouth every evening. 02/14/2023 Active DULoxetine HCl 30 MG Oral Capsule Delayed Release Particles (Cymbalta) Take 1 Capsule by mouth in the morning. 02/19/2024 Active diphenhydrAMINE-Acet aminophen 12.5-500 MG Oral Tablet Take 1 Tablet by mouth at bedtime. Active Beet Root 500 MG Oral Capsule Take 2 Each by mouth in the morning. (Gummies). Active Sulfamethoxazole-Tri methoprim 800-160 MG Oral Tablet (Bactrim DS)Indications:Dysur ia Take 1 Tablet by mouth in the morning and 1 Tablet before bedtime. Do all this for 3 days. Until gone. 6 Tablet 03/14/2024 03/17/2024 Active Lisinopril 10 MG Oral Tablet (Prinivil)Indication s:HTN, goal below 140/90 Take 1 Tablet by mouth in the morning. 30 Tablet 1 03/14/2024 Active documented as of this encounter (statuses as of 03/16/2024) Active Problems Problem Noted Date Diagnosed Date HTN, goal below 140/90 03/14/2024 documented as of this encounter (statuses as of 03/16/2024) Immunizations Name Administration Dates Next Due TDAP (age 10 and older)(Boostrix) 12/25/2014 documented as of this encounter Social History Tobacco Use Types Packs/Day Years Used Date Smoking Tobacco: Never Smokeless Tobacco: Never Alcohol Use Standard Drinks/Week Comments No 0 [...] on file documented as of this encounter Miscellaneous Notes * Telephone Encounter - Shannon Modi LPN - 03/16/2024 12:10 PM EDT Call placed to patient and relayed information from Dr. Benson. Pt acknowledged understanding andstates she will comply. * Telephone Encounter - Daysi Benson DO - 03/15/2024 5:34 PM EDT Please let pt know: Her culture did not show any infection. She can stop the antibiotic. If she notices any further bleeding, she should let us know. documented in this encounter Plan of Treatment Upcoming Encounters Date Type Department Care Team (Late st Contact Info) Description 03/28/2024 2:30 PM EDT Nurse Only Family Practice 65 [facility] 293 [place] [address] College, Nurse Fam Prac 65 [facility] 293 [place] [address] 03/28/2024 3:30 PM EDT Cardiac Studies Cardiac Studies, [facility] 132 [facility] [place] [address] 06/14/2024 2:20 PM EST Office Visit Family Practice 65 [facility] 293 [place] [address] Daysi Benson DO [address] [place] [address] Health Maintenance Due Date Last Done Comments Lipid Panel 1952 Albumin/Creatinine Ratio 1970 Hepatitis C Screening 1970 Mammogram 1992 Cologuard 1997 Colonoscopy 1997 Colorectal Cancer Screening 1997 Fecal Occult Blood Test 1997 Sigmoidoscopy 1997 Zoster Vaccines (1 of 2) 2002 DXA Scan 2017 Pneumococcal Vaccine: 65+ Years (1 of 1 - PCV) 2017 Adult Wellness Visit 2018 COVID-19 Vaccine (1 - 2022-2 4 season) 2023 Influenza Vaccine (FLU shot) (#1) 2024 GFR [...] Not on filedocumented as of this encounter Care Teams Multi Care Technician Relationship Specialty Start Date End Date Daysi Benson DO 293 [place] [address] PCP - General Family Medicine 03/14/24 documented as of this encounter
--- OUTSIDE RECORDS SUMMARY | 2024-03-24 03:01 | External Medical Summary | Summary of Care ---
Author Name Unknown Organization [facility] Address [address] [place] [address] Phone [phone] Care Team Providers Care Golf Course Keeper Name Role Phone Daniela Galan MD Primary Care Provider Reason for Visit * Reason Comments Rash Encounter Details Date Type Department Care Team (Latest Contact Info) Description 01/14/2024 11:00 AM EDT Convenient Care Visit [address] [phone] Yeimy Forbes PA-C 132 [facility] [place] [address] Allergic contact dermatitis due to plants, except food*; Elevated BP without diagnosis of hypertension Allergies Active Allergy Reactions Criticality Noted Date Comments Penicillins Hives High 10/09/2014 documented as of this encounter (statuses as of 01/14/2024) Medications Medication Sig Dispensed Refills Start Date End Date Status Sertraline HCl 50 MG Oral Tablet (Zoloft) Take 1 Tablet by mouth in the morning. 02/14/2023 Active Meloxicam 15 MG Oral TabletIndications:S acroiliitis (HCC) Take 1 Tablet by mouth in the morning. 30 Tablet 2 01/01/2024 Active Additional Information Patient not taking.Reported on 01/14/2024 predniSONE 20 MG Oral Tablet (Deltasone)Indicati ons:Allergic contact dermatitis due to plants, except food Take 2 tablets by mouth once daily x 2 days, then 1 tablet by mouth once daily x 2 days, then 1/2 tablet by mouth once daily x 2 days. 7 Tablet 01/14/2024 Active documented as of this encounter (statuses as of 01/14/2024) Active Problems No known active problems documented as of this encounter (statuses as of 01/14/2024) Social History Tobacco Use Types Packs/Day Years Used Date Smoking Tobacco: Never Smokeless Tobacco: Never Alcohol Use Standard Drinks/Week Comments No 0 (1 standard drink = 0.6 oz pur e alcohol) Sex and Gender Information Value Date Recorded Sex Assigned at Not on file Gender Identity Not on file Sexual Orientation Not on file Job Start Date Occupation Industry Not on file Not on file Not on file documented as of this encounter Last Filed Vital Signs Vital Sign Reading Time Taken Comments Blood Pressure 138/94 01/14/2024 10:46 AM EDT Pulse 97 01/14/2024 10:46 AM EDT Temperature 36.4 C (97.6 F) 01/14/2024 10:46 AM E DT Respiratory Rate 18 01/14/2024 10:46 AM EDT Oxygen Saturation 95% 01/14/2024 10:46 AM EDT Inhaled Oxygen Concentration - - Weight 82.6 kg (182 lb) 01/14/2024 10:46 AM EDT Height - - Body Mass Index 28.51 10/09/2014 1:40 PM EST documented in this encounter Progress Notes * Yeimy Forbes PA-C - 01/14/2024 10:59 AM EDT SUBJECTIVE: CC: Jolie Izquierdo is a 73 year old female who presents with itchy rash x 2 days. HPI: Patient states that 2 days ago started with rash on left side of neck, now spread to both lateral sides of face and right arm. Sh was in yard around [employer] the day prior to rash starting. Has been using OTC cortisone 10 cream with some relief. Nursing Notes: Sushma Norwood [facility] 01/14/24 1049 Signed Nursing Notes: CC: Chief Complaint Patient presents with Rash Brief Hx: Patient complains of a rash possible poison on face and chest Duration/Onset: 2 days OTC meds: cortisone Accompanied by: self ROS: See HPI for pertinent positive and negatives HISTORY: Past Medical History: Diagnosis Date Depression Sciatica Past Surgical History: Procedure Laterality Date LAPAROSCOPY; CHOLECYSTECTOMY SACROILIAC JOINT INJECT W/GUIDANCE 08/14/2023 INJECTION SACROILIAC JOINT performed by Pablito Hall DO at OR [facility] TOTAL ABD HYSTERECTOMY W/WO REMOVAL OF TUBE(S) with oophorectomy Social History Tobacco Use Smoking status: Never Smokeless tobacco: Never Substance Use Topics Alcohol use: No Drug use: No No family history on file. Current Outpatient Medications Medication Sig Dispense Refill Sertraline HCl 50 MG Oral Tablet (Zoloft) Take 1 Tablet by mouth in the morning. Meloxicam 15 MG Oral Tablet Take 1 Tablet by mouth in the morning. (Patient not taking: Reported on01/14/2024) 30 Tablet 2 No current facility-administered medications for this visit. Review of patient's allergies indicates: Allergen Reactions Penicillins Hives OBJECTIVE: BP 138/94 | Pulse 97 | Temp 36.4 C (97.6 F) (Tympanic) | Resp 18 | Wt 82.6 kg (182 lb) | SpO2 95% | BMI 28.51 kg/m | BSA 1.98 m Recheck BP left arm 140/90 General appearance: awake, alert, no apparent distress, cooperative Eyes: sclera clear, PERRL Neck: supple, no adenopathy, thyroid normal size, non-tender, without nodularity Heart: regular rate & rhythm, no gallops, and no murmurs Lungs: lungs clear to auscultation and breathing non-labored Skin: + erythematous macular rash over left lateral neck, right cheek, left forehead and right wrist. Other skin color, texture, turgor are normal ASSESSMENT/PLAN: Allergic contact dermatitis due to plants, except food (Primary) - predniSONE 20 MG Oral Tablet (Deltasone); Take 2 tablets by mouth once daily x 2 days, then 1 tablet by mouth once daily x 2 days, then 1/2 tablet by mouth once daily x 2 days. Can continue with OTC hydrocortisone 1% cream, as package directs. Avoid using on face for extendedperiods of time (> 3 days), avoid eyes. Elevated BP without diagnosis of hypertension Recommend patient f/u with PCP in next 7 days, for blood pressure check. Recommend she get OTC blood pressure cuff to take BP in morning once daily. Call PCP or got ER for any readings 160/100 or above. Patients goals for plan of care were discussed. Total time today including reviewing chart before the visit, pertinent labs, imaging reports, face to face time, and documentation time was 36 minutes. Follow up: Instructed to follow up or notify Primary Care Provider if no better in: 1-2 day(s), andto ER immediately if signs and symptoms worsen. Yeimy Forbes PA-C [address] [address] documented in this encounter Nursing Notes * Sushma Norwood CMA - 01/14/2024 10:46 AM EDT Nursing Notes: CC: Chief Complaint Patient presents with Rash Brief Hx: Patient complains of a rash possible poison on face and chest Duration/Onset: 2 days OTC meds: cortisone Accompanied by: self documented in this encounter Plan of Treatment Health Maintenance Due Date Last Done Comments Lipid Panel 1952 Depression Screening 1964 Hepatitis C Screening 1970 DTaP,Tdap,and Td Vaccines (1 - Tdap) 10/26/1971 Mammogram 1992 Cologuard 1997 Colonoscopy 1997 Colorectal Cancer Screening 1997 Fecal Occult Blood Test 1997 Sigmoidoscopy 1997 Zoster Vaccines (1 of 2) 2002 DXA Scan 2017 COVID-19 Vaccine ( - 2022-2 4 season) 2023 Influenza Vaccine (FLU shot) (Season Ended) 2024 Pneumococcal Vaccine: 65+ Years Completed 09/12/2020, 06/07/2019 GARDASIL-HPV IMMUNIZATION SERIES Aged Out No longer eligible b ased on patient's age to complete this topic Hepatitis B Aged Out No longer eligi ble based on patient's age to complete this topic MENINGOCOCCAL (MENACTRA/MENVEO) Aged Out No longer eligible b ased on patient's age to complete this topic documented as of this encounter Medical Devices Not on filedocumented as of this encounter Visit Diagnoses Diagnosis Allergic contact dermatitis due to plants, except food- Primary Contact dermatitis and other eczema due to plants (except food) Elevated BP without diagnosis of hypertension documented in this encounter Care Teams Golf Course Keeper Relationship Specialty Start Date End Date Daniela Galan MD [address] [place] [address] PCP - General Family Medicine 02/24/18 documented as of this encounter"
--- OUTSIDE RECORDS SUMMARY | 2024-03-24 03:01 | External Medical Summary | Summary of Care ---
Author Name Unknown Organization [facility] Address [address] [place] [address] Phone [phone] Care Team Providers Care Corporate Sales Trainer Name Role Phone Daniela Galan MD Primary Care Provider Reason for Visit * Reason Comments Outpatient Testing Encounter Details Date Type Department Care Team (Late st Contact Info) Description 12/25/2023 1:40 PM EDT Laboratory Laboratory Patient Service [address] [phone] [place], [facility] [address] [place] [id number] Sacroiliitis (HCC) Allergies Active Allergy Reactions Criticality Noted Date Comments Penicillins Hives High 10/09/2014 documented as of this encounter (statuses as of 12/25/2023) Medications Medication Sig Dispensed Refills Start Date End Date Status Sertraline HCl 50 MG Oral Tablet (Zoloft) Take 1 Tablet by mouth in the morning. 0 02/14/2023 Active Meloxicam 15 MG Oral TabletIndications:Sac roiliitis (HCC) Take 1 Tablet by mouth in the morning. 30 Tablet 2 09/15/2023 Active documented as of this encounter (statuses as of 12/25/2023) Active Problems No known active problems documented as of this encounter (statuses as of 12/25/2023) Social History Tobacco Use Types Packs/Day Years [...] on file documented as of this encounter Plan of Treatment Pending Results Name Type Priority Associated Diagnoses Date /Time COMPREHENSIVE METABOLIC PANEL Lab Routine Sacroiliitis (HCC) 12/25/2023 1:48 PM EDT Health Maintenance Due Date Last Done Comments [...] as of this encounter Visit Diagnoses Diagnosis Sacroiliitis (HCC) Sacroiliitis, not elsewhere classified documented in this encounter Care Teams Corporate Sales Trainer Relationship Specialty Start Date End Date Daniela Galan MD [address] [place] [address] PCP - General Family Medicine 02/24/18 documented as of this encounter
--- OUTSIDE RECORDS SUMMARY | 2024-03-24 03:01 | External Medical Summary ---
Author Name Unknown Address Unknown Organization [id number]:[facility] - [address] [place] [address] Laboratory Report Ordering Provider Test Date Status RANDELL GODFREY 12/25/2023 13:48:44 Final Observation Date Value Abnormality Reference (Units ) Status BUN 12/25/2023 13:48:44 25 Above high normal 6-20 (mg/dL) Final Creatinine 12/25/2023 13:48:44 1.0 0.5-1.0 (mg/dL) Final Glomerular filtration rate/1.73 sq M.predicted [Volume Rate/Area] in Serum, Plasma or Blood by Creatinine-based formula (CKD-EPI) 12/25/2023 13:48:44 60 >=60 (mL/min) Final eGFR is calculated based on the CKD-EPI 2020 equation Sodium 12/25/2023 13:48:44 141 135-146 (m mol/L) Final Potassium 12/25/2023 13:48:44 4.6 3.5-5.1 (m mol/L) Final Cl 12/25/2023 13:48:44 107 98-107 (mm ol/L) Final CO2 12/25/2023 13:48:44 22 22-32 (mmo l/L) Final Anion gap 12/25/2023 13:48:44 12 7-15 (mmol /L) Final Glucose 12/25/2023 13:48:44 121 Above high normal 70 -120 (mg/dL) Final Albumin 12/25/2023 13:48:44 4.6 3.8-5.0 (g /dL) Final AST (Aspartate aminotransferase) 12/25/2023 13:48:44 40 Above high normal 10-35 (U/L) Final Result may be falsely elevat ed due to hemolysis. Alk Phos 12/25/2023 13:48:44 75 35-130 (U/ L) Final Bilirubin, Total 12/25/2023 13:48:44 0.7 <=1 .2 (mg/dL) Final Calcium 12/25/2023 13:48:44 9.9 8.4-10.2 ( mg/dL) Final Protein 12/25/2023 13:48:44 6.7 6.0-8.3 (g /dL) Final ALT (Alanine aminotransferase) 12/25/2023 13:48:44 32 10-35 (U/L) Final Performing Location [facility] - [address] [facility] [address]
--- OUTSIDE RECORDS SUMMARY | 2024-03-24 03:01 | External Medical Summary | Summary of Care ---
Author Name Unknown Organization [facility] Address [address] [place] [address] Phone [phone] Care Team Providers Care Full Fashioned Garment Knitter Name Role Phone Daniela Galan MD Primary Care Provider Reason for Visit * Reason Onset Date Comments Medication Refill 12/23/2023 Encounter Details Date Type Department Care Team (Late st Contact Info) Description 12/23/2023 Telephone Interventional Pain Center, [facility] [address] [place] [address] Sabrina Shelton PA-C [address] [place] [address] Medication Refill Allergies Active Allergy Reactions Criticality Noted Date Comments Penicillins Hives High 10/09/2014 documented as of this encounter (statuses as of 01/12/2024) Medications Medication Sig Dispensed Refills Start Date End Date Status Sertraline HCl 50 MG Oral Tablet (Zoloft) Take 1 Tablet by mouth in the morning. 02/14/2023 Active Meloxicam 15 MG Oral TabletIndications :Sacroiliitis (HCC) Take 1 Tablet by mouth in the morning. 30 Tablet 2 01/01/2024 Active Meloxicam 15 MG Oral TabletIndications :Sacroiliitis (HCC) Take 1 Tablet by mouth in the morning. 30 Tablet 2 09/15/2023 01/01/2024 Discontinued( Refill) documented as of this encounter (statuses as of 01/12/2024) Active Problems No known active problems documented as of this encounter (statuses as of 01/12/2024) Social History Tobacco Use Types Packs/Day Years [...] encounter Miscellaneous Notes * Telephone Encounter - Martha Escalante OSA - 01/12/2024 10:40 AM EDT Patient calling in to check on the status of previous message regarding the Cymbalta she has not heard anything from her PCP. She will reach out to them and if she needs anything further will provide a return call for assistance. * Telephone Encounter - Angelica Kasper LPN - 01/05/2024 2:00 PM EDT Pt called back..she will reach out to pcp office as well. Aware to have labs in 6wks * Telephone Encounter - Angelica Kasper LPN - 01/05/2024 1:15 PM EDT Left message for a patient. * Telephone Encounter - Sabrina Shelton PA-C - 01/01/2024 3:21 PM EDT Recommend speaking with PCP prior to prescribing Cymbalta as she is also on zoloft. Office note faxed to PCP. BUN was elevated, have some concerns for using NSAID. Can send refill, but will need to repeat labsand if we continue to see kidney function decline, will have to stop. Do not recommend mobic on snf basis. Plan for repeat CMP in approximately six weeks. Limited injection almodovar - defers MRI due to significant claustrophobia. * Telephone Encounter - Kalyn Dozier OSA - 01/01/2024 10:22 AM EDT Светланаtent calling to check on status of meloxicam and cymbalta. Caller can be reached at [phone]. Patient states she had her bloodwork completed for the meloxicam. Patient states she previously discussed cymbalta however she has not heard anything in regards to if she could receive this medication. Please reach out to patient to discuss concerns. Thank you, Kalyn Dozier Snap Attacher I [facility] 01/01/2024,10:22 AM * Telephone Encounter - Loraine Alexander CPhT - 12/23/2023 10:34 AM EDT Patient is up to date for office visits. Pending Prescriptions: Disp Refills Meloxicam 15 MG Oral Tablet 30 Tab*2 Sig: Take 1 Tablet by mouth in the morning. Last Visit: 05/22/2023 (in office), 09/25/2023 (telemedicine) Next Visit: Visit date not found If no future appointments scheduled, and last appointment is greater than a year ago, please schedule patient for a follow-up appointment Last date the medication was ordered: 09/15/2023 Pharmacy: [facility] [address] Is this request for a controlled substance?No it is not controlled. Urine Drug Screen:No results found for this or any previous visit. Patient Phone Numbers Labs: No results found for: "CREAT", "POTASSIUM", "TSH", "LDLCALC", "LDLDIRECT", "LDLCHOL", "ALT", "HGBA1C" documented in this encounter Plan of Treatment Health Maintenance Due Date Last Done Comments Lipid Panel 1952 Depression Screening 1964 Hepatitis C Screening 1970 DTaP,Tdap,and Td Vaccines (1 - Tdap) 10/26/1971 Mammogram 1992 Cologuard 1997 Colonoscopy 1997 Colorectal Cancer Screening 1997 Fecal Occult Blood Test 1997 Sigmoidoscopy 1997 Zoster Vaccines (1 of 2) 2002 DXA Scan 2017 COVID-19 Vaccine (1 - 2022-2 4 season) [...] classified documented in this encounter Care Teams Full Fashioned Garment Knitter Relationship Specialty Start Date End Date Daniela Galan MD [address] [place] [address] PCP - General Family Medicine 02/24/18 documented as of this encounter
--- OUTSIDE RECORDS SUMMARY | 2024-03-24 03:01 | External Medical Summary | Summary of Care ---
Author Name Unknown Organization [facility] Address [address] [place] [address] Phone [phone] Care Team Providers Care Fountain Waitress/Waiter Name Role Phone Daniela Galan MD Primary Care Provider Reason for Visit * Reason Onset Date Comments Appointment 10/19/2023 Encounter Details Date Type Department Care Team (Late st Contact Info) Description 10/19/2023 Telephone Care at Home [address] [place] [address] Services, Scheduling [address] [place] [address] Appointment Allergies Active Allergy Reactions Criticality Noted Date Comments Penicillins Hives High 10/09/2014 documented as of this encounter (statuses as of 10/19/2023) Medications Medication Sig Dispensed Refills Start Date End Date Status Sertraline HCl 50 MG Oral Tablet (Zoloft) Take 1 Tablet by mouth in the morning. 0 02/14/2023 Active Meloxicam 15 MG Oral TabletIndications:Sac roiliitis (HCC) Take 1 Tablet by mouth in the morning. 30 Tablet 2 09/15/2023 Active documented as of this encounter (statuses as of 10/19/2023) Active Problems No known active problems documented as of this encounter (statuses as of 10/19/2023) Social History Tobacco Use Types Packs/Day Years [...] encounter Miscellaneous Notes * Telephone Encounter - Archana Castorena OSA - 10/19/2023 12:10 PM EDT [facility] Outreach Call attempt: 1st Call Call result: Call Unsuccessful - Left a voice mail Looking to schedule Awv with [facility] Radha Ceballos PA-C, spouse completed in Aug with PCP Can offer: HV 10/20/23 or 10/26/23 Video 10/20/23 or 10/21/23 Provided a call back number of [phone]. SAVANNAH Morfin documented in this encounter Plan of Treatment [...] season) 2023 Influenza Vaccine (FLU shot) (#1) 2023 Pneumococcal Vaccine: 65+ Years Completed 09/12/2020, 06/07/2019 [...] filedocumented as of this encounter Care Teams Fountain Waitress/Waiter Relationship Specialty Start Date End Date Daniela Galan MD [email or web address] [address] PCP - General Family Medicine 02/24/18 documented as of this encounter
--- OUTSIDE RECORDS SUMMARY | 2024-03-24 03:01 | External Medical Summary | Summary of Care ---
Author Name Unknown Organization [facility] Address [address] [place] [address] Phone [phone] Care Team Providers Care Director Of Transportation Name Role Phone Daniela Galan MD Primary Care Provider Reason for Visit * Reason Onset Date Comments Medication Refill 12/23/2023 Encounter Details Date Type Department Care Team (Late st Contact Info) Description 12/23/2023 Telephone Interventional Pain Center, [facility] [address] [place] [address] Sabrina Shelton PA-C [address] [place] [address] Medication Refill Allergies Active Allergy Reactions Criticality Noted Date Comments Penicillins Hives High 10/09/2014 documented as of this encounter (statuses as of 01/05/2024) Medications Medication Sig Dispensed Refills Start Date [...] as of this encounter (statuses as of 01/05/2024) Active Problems No known active problems documented as of this encounter (statuses as of 01/05/2024) Social History Tobacco Use Types Packs/Day Years [...] encounter Miscellaneous Notes * Telephone Encounter - Angelica Kasper LPN [...] to stop. Do not recommend mobic on terminal operator basis. Plan for repeat CMP in approximately six weeks. Limited injection almodovar - defers MRI due to significant claustrophobia. * Telephone Encounter - Kalyn Dozier OSA - 01/01/2024 10:22 AM EDT Corky calling to check on status of meloxicam and cymbalta. Caller can be reached at [phone]. Patient states she had her bloodwork completed for the meloxicam. Patient states she previously discussed cymbalta however she has not heard anything in regards to if she could receive this medication. Please reach out to patient to discuss concerns. Thank you, Kalyn Dozier Alum Mixer [facility] 01/01/2024,10:22 [...] date the medication was ordered: 09/15/2023 Pharmacy: [facility] [address] Is this request for a controlled [...] classified documented in this encounter Care Teams Director Of Transportation Relationship Specialty Start Date End Date Daniela Galan MD [address] [facility] [facility] [place] [address] PCP - General Family Medicine 02/24/18 documented as of this encounter
--- OUTSIDE RECORDS SUMMARY | 2024-03-24 03:01 | External Medical Summary | Summary of Care ---
Author Name Unknown Organization [facility] Address [address] [place] [address] Phone [phone] Care Team Providers Care Technology Advisor Name Role Phone Daniela Galan MD Primary Care Provider Reason for Visit * Reason Comments Outpatient Testing Encounter Details Date Type Department Care Team (Late st Contact Info) Description 12/25/2023 1:40 PM EDT Laboratory Laboratory Patient Service [address] [phone] [facility], [facility] [address] [place] [phone] Sacroiliitis (HCC) Allergies Active Allergy Reactions Criticality Noted Date Comments Penicillins Hives High 10/09/2014 documented as of this encounter (statuses as of 12/26/2023) Medications Medication Sig Dispensed Refills Start Date End Date Status Sertraline HCl 50 MG Oral Tablet (Zoloft) Take 1 Tablet by mouth in the morning. 0 02/14/2023 Active Meloxicam 15 MG Oral TabletIndications:Sac roiliitis (HCC) Take 1 Tablet by mouth in the morning. 30 Tablet 2 09/15/2023 Active documented as of this encounter (statuses as of 12/26/2023) Active Problems No known active problems documented as of this encounter (statuses as of 12/26/2023) Social History Tobacco Use Types Packs/Day Years [...] as of this encounter Plan of Treatment Health Maintenance [...] Procedure Name Priority Date/Time Associated Diagnosis Comments COMPREHENSIVE METABOLIC PANEL Routine 12/25/2023 1:48 PM EDT Sacroiliitis (HCC) documented in this encounter Results * (ABNORMAL) COMPREHENSIVE METABOLIC PANEL (12/25/2023 1:48 PM EDT) BUN 25(H) 6 - 20 mg/dL 12/26/2023 3:16 AM EDT [facility] Creatinine 1.0 0.5 - 1.0 mg/dL 12/26/2023 3:16 AM EDT [facility] Estimated Glomerular Filtration Rate 60 >=60 mL/min 12/26/2023 3:16 AM EDT [facility] Comment:eGFR is calculated b ased on the CKD-EPI 2020 equation Sodium 141 135 - 146 mmol/L 12/26/2023 3:16 AM EDT [facility] Potassium 4.6 3.5 - 5.1 mmol/L 12/26/2023 3:16 AM EDT [facility] Chloride 107 98 - 107 mmol/L 12/26/2023 3:16 AM EDT [facility] CO2 22 22 - 32 mmol/L 12/26/2023 3:16 AM EDT [facility] Anion Gap 12 7 - 15 mmol/L 12/26/2023 3:16 AM EDT [facility] Glucose 121(H) 70 - 120 mg/dL 12/26/2023 3:16 AM EDT [facility] Albumin 4.6 3.8 - 5.0 g/dL 12/26/2023 3:16 AM EDT [facility] AST 40(H) 10 - 35 U/L 12/26/2023 3:16 AM EDT [facility] Comment:Result may be falsel y elevated due to hemolysis. Alkaline Phosphatase 75 35 - 130 U/L 12/26/2023 3:16 AM EDT [facility] Bilirubin, Total 0.7 <=1.2 mg/dL 12/26/2023 3:16 AM EDT [facility] Calcium 9.9 8.4 - 10.2 mg/dL 12/26/2023 3:16 AM EDT [facility] Protein 6.7 6.0 - 8.3 g/dL 12/26/2023 3:16 AM EDT [facility] ALT 32 10 - 35 U/L 12/26/2023 3:16 AM EDT [facility] Blood Venous blood specimen / Unknown Venipuncture / Unknown 12/25/2023 1:48 PM EDT 12/25/2023 1:48 PM EDT Sabrina Shelton PA-C LAB BLOOD ORDERABLES [facility] [address] [place] [address] documented in this encounter Visit Diagnoses Diagnosis Sacroiliitis (HCC) Sacroiliitis, not elsewhere classified documented in this encounter Care Teams Technology Advisor Relationship Specialty Start Date End Date Daniela Galan MD [address] [place] [address] PCP - General Family Medicine 02/24/18 documented as of this encounter
--- OUTSIDE RECORDS SUMMARY | 2024-03-24 03:01 | External Medical Summary | Summary of Care ---
Author Name Unknown Organization [facility] Address [address] [place] [address] Phone [phone] Care Team Providers Care Associate Data Scientist Name Role Phone Daniela Galan MD Primary Care Provider Reason for Visit * Reason Onset Date Comments Medication Refill 12/23/2023 Encounter Details Date Type Department Care Team (Late st Contact Info) Description 12/23/2023 Telephone Interventional Pain Center, [facility] [address] [place] [address] Sabrina Shelton PA-C [address] [place] [address] Medication Refill Allergies Active Allergy Reactions Criticality [...] to stop. Do not recommend mobic on roasterman basis. Plan for repeat CMP in approximately six weeks. Limited injection almodovar - defers MRI due to significant claustrophobia. * Telephone Encounter - Kalyn Dozier OSA - 01/01/2024 10:22 AM EDT Corky calling to check on status of meloxicam and cymbalta. Caller can be reached at [phone]. Patient states she had her bloodwork completed for the meloxicam. Patient states she previously discussed cymbalta however she has not heard anything in regards to if she could receive this medication. Please reach out to patient to discuss concerns. Thank you, Kalyn Dozier Cupola Melter Helper [facility] 01/01/2024,10:22 [...] the medication was ordered: 09/15/2023 Pharmacy: [facility] [address] [facility] Is this request for a controlled substance?No [...] classified documented in this encounter Care Teams Associate Data Scientist Relationship Specialty Start Date End Date Daniela Galan MD [address] [place] [address] PCP - General Family Medicine 02/24/18 documented as of this encounter
--- OUTSIDE RECORDS SUMMARY | 2024-03-24 03:01 | External Medical Summary | Summary of Care ---
Author Name Unknown Organization [facility] Address [address] [place] [address] Phone [phone] Care Team Providers Care Wine Consultant Name Role Phone Daysi Benson DO Primary Care Provider [phone] Reason for Referral * Precert (Within 10 days (routine)) - Authorized Specialty Diagnoses / Procedures Referred By Contac t Referred To Contact Cardiac Studies Diagnoses HTN, goal below 140/90 Heart murmur Procedures ECHO, COMPLETE (2D), TRANS-THORACIC Daysi Benson DO [address] [place] [address] Referral ID Status Reason Start Date Expiration Date V isits Requested Visits Authorized [id number] Authorized Precert 03/14/2024 999 999 Reason for Visit * Reason Comments NEW PATIENT Encounter Details Date Type Department Care Team (Latest Contact Info) Description 03/14/2024 10:40 AM EDT Office Visit Family Practice [address] [facility] [place] [address] [place] [address] Daysi Benson DO [address] [place] [address] Dysuria*; HTN, goal below 140/90; Heart murmur; Caregiver stress; Screening for cardiovascular condition; Risk and functional assessment Allergies Active Allergy Reactions Criticality Noted Date Comments Penicillins Hives High 10/09/2014 documented as of this encounter (statuses as of 03/14/2024) Medications Medication Sig Dispensed Refills Start Date [...] as of this encounter (statuses as of 03/14/2024) Active Problems Problem Noted Date Diagnosed Date HTN, goal below 140/90 03/14/2024 documented as of this encounter (statuses as of 03/14/2024) Immunizations Name Administration Dates Next Due TDAP [...] Shey Patient Education Copyright 2009 - 2010 [employer] except where otherwise noted. Preventing Falls: Moving [...] that mean climbing, even on a stepstool. [employer] Patient Education Copyright 2008 - 2010 [employer] except where otherwise noted. Urinary Incontinence Plan [...] documented in this encounter Progress Notes * Daysi Benson, DO - 03/14/2024 10:18 AM EDT SUBJECTIVE: Chief Complaint Patient presents with NEW PATIENT HPI: Jolie Izquierdo is a 73 year old female who presents today to [facility]. Pt was previously seeing Dr. Galan. [...] performed by Pablito Hall DO at OR [facility] TOTAL ABD HYSTERECTOMY W/WO REMOVAL OF TUBE(S) [...] Daysi Benson DO documented in this encounter Nursing Notes * [...] 2:30 PM EDT Nurse Only Family Practice [address] [place] [address] [address] [place] [id number] College, Nurse Fam Prac [address] [address] 03/28/2024 3:30 PM EDT Cardiac Studies Cardiac Studies, [facility] [address] [facility] [place] [address] 06/14/2024 2:20 PM EST Office Visit Family Practice [facility] [address] [facility] [place] [phone] Daysi Benson DO [address] [place] [address] Pending Results Name Type Priority Associated Diagnoses [...] below 140/90 Expected: 03/14/2024 (Approximate), Expires: 03/14/2025 EKG EKG Routine HTN, goal below 140/90 Expected: 03/14/2024 (Approximate), Expires: 04/14/2025 ECHO, COMPLETE (2D), TRANS-THORACIC Echocardiology Routine HTN, goal below 140/90 Heart murmur Expected: 03/14/2024, Expires: 04/14/2026 Health Maintenance Due Date Last Done Comments Lipid Panel 1952 Cologuard 1997 Colonoscopy 1997 Fecal Occult Blood Test 1997 Sigmoidoscopy 1997 COVID-19 Vaccine ( - 2022-2 4 season) [...] Education) Influenza Vaccine (FLU shot) (#1) 2024 DTaP,Tdap,and Td Vaccines (2 - Td or [...] Procedure Name Priority Date/Time Associated Diagnosis Comments URINALYSIS, POINT OF CARE COTY 03/14/2024 11:10 AM EDT documented in this encounter Results * (ABNORMAL) URINALYSIS, POINT OF CARE (03/14/2024 11:10 AM EDT) Color, Urine Dark Yellow(A) Light Yellow, Yellow 03/14/2024 12:06 PM EDT [place] [address] Clarity, Urine Slightly Cloudy(A) Clear 03/14/2024 12:06 PM EDT [facility] [place] [address] Glucose, Urine Negative Negative mg/dL 03/14/2024 12:06 PM EDT [facility] [place] [address] Bilirubin, Urine Negative Negative 03/14/2024 12:06 PM EDT [place] [address] Ketone, Urine Negative Negative mg/dL 03/14/2024 12:06 PM EDT [place] [address] Specific [place], Urine >=1.030 1.003 - 1.030 03/14/2024 12:06 PM EDT [facility] [place] [address] Blood, Urine Small(A) Negative 03/14/2024 12:06 PM EDT [place] [address] pH, Urine 5.5 5.0, 5.5, 6.0, 6.5, 7.0, 7.5 units 03/14/2024 12:06 PM EDT [place] [address] Protein, Urine Negative Negative mg/dL 03/14/2024 12:06 PM EDT [place] [address] Urobilinogen, Urine 0.2 0.2, 1.0 mg/dL 03/14/2024 12:06 PM EDT [facility] 56-21 Nitrite, Urine Negative Negative 03/14/2024 12:06 PM EDT [facility] 56- Esterase, Urine Trace(A) Negative 03/14/2024 12:06 PM EDT [facility] 56 Urine 03/14/2024 11:1 0 AM EDT 03/14/2024 12:06 PM EDT Daysi Benson DO LAB POINT OF CARE TE ST DOCKED DEVICE UNSOLICITED RESULTS [facility] 56 [address] [facility] [place] [address] documented in this encounter Visit Diagnoses Diagnosis Dysuria- Primary HTN, goal below 140/90 Unspecified essential hypertension Heart murmur Undiagnosed cardiac murmurs Caregiver stress Other health problem within the family Screening for cardiovascular condition Screening for other and unspecified cardiovascular conditions Risk and functional assessment Screening for unspecified condition documented in this encounter Care Teams Wine Consultant Relationship Specialty Start Date End Date Daysi Benson [facility] [address] [facility] [address] PCP - General Family Medicine 03/14/24 documented as of this encounter
--- OUTSIDE RECORDS SUMMARY | 2024-03-24 03:01 | External Medical Summary | Summary of Care ---
Author Name Unknown Organization [facility] Address [address] [place] [address] Phone [phone] Care Team Providers Care Herb Digger Name Role Phone Daysi Benson DO Primary Care Provider [phone] Reason for Referral * Precert (Within 10 days (routine)) - Authorized Specialty Diagnoses / Procedures Referred By Contac t Referred To Contact Cardiac Studies Diagnoses HTN, goal below 140/90 Heart murmur Procedures ECHO, COMPLETE (2D), TRANS-THORACIC Daysi Benson DO [address] [place] [address] Referral ID Status Reason Start Date Expiration Date V isits Requested Visits Authorized [id number] Authorized Precert 03/14/2024 999 999 Reason for Visit * Reason Comments NEW PATIENT Encounter Details Date Type Department Care Team (Latest Contact Info) Description 03/14/2024 10:40 AM EDT Office Visit Family Practice 65 [facility] [place] [address] [place] [address] Daysi Benson DO [address] [place] [address] Dysuria*; HTN, goal below 140/90; Heart murmur; [...] Shey Patient Education Copyright 2009 - 2010 [employer] except where otherwise noted. Preventing Falls: Moving [...] that mean climbing, even on a stepstool. [employer] Patient Education Copyright 2008 - 2010 [employer] except where otherwise noted. Urinary Incontinence Plan [...] year old female who presents today to [facility] care. Pt was previously seeing Dr. Galan. [...] performed by Pablito Hall DO at OR [facility] TOTAL ABD HYSTERECTOMY W/WO REMOVAL OF TUBE(S) [...] ECG Ventricular Rate: 76 Atrial Rate: 76 WI Interval: 152 QRS Duration: 98 QT/QTc: 416/468 ms P-R-T [place]: 25 : -37 : 122 degrees documented [...] PM EDT Nurse Only Family Practice 65 [facility] 293 [place] [address] College, Nurse [facility] Prac [address] [place] [address] 03/28/2024 3:30 PM EDT Cardiac Studies Cardiac Studies, [facility] [address] [place] [address] 06/14/2024 2:20 PM EST Office Visit Family Practice [address] [facility], [place] [address] [place] [id number] Daysi Benson DO 293 [facility], [place] [address] Pending Results Name Type Priority Associated Diagnoses [...] 1997 Adult Wellness Visit 2018 COVID-19 Vaccine (2022-2 4 season) 2023 Colorectal Cancer Screening 03/15/2024 [...] Procedure Name Priority Date/Time Associated Diagnosis Comments WI ECG ROUTINE ECG W/LEAST 12 LDS I&R [...] ECG Ventricular Rate: 76 Atrial Rate: 76 WI Interval: 152 QRS Duration: 98 QT/QTc: 416/468 ms P-R-T [place]: 25 : -37 : 122 degrees Daysi Benson DO EKG [facility] * (ABNORMAL) URINALYSIS, POINT OF CARE (03/14/2024 11:10 AM EDT) Color, Urine Dark Yellow(A) Light Yellow, Yellow 03/14/2024 12:06 PM EDT [place] [address] Clarity, Urine Slightly Cloudy(A) Clear 03/14/2024 12:06 PM EDT [place] [address] Glucose, Urine Negative Negative mg/dL 03/14/2024 12:06 PM EDT [place] [address] Bilirubin, Urine Negative Negative 03/14/2024 12:06 PM EDT [place] [address] Ketone, Urine Negative Negative mg/dL 03/14/2024 12:06 PM EDT [place] [address] Specific [place], Urine >=1.030 1.003 - 1.030 03/14/2024 12:06 PM EDT [place] [address] Blood, Urine Small(A) Negative 03/14/2024 12:06 PM EDT [place] [address] pH, Urine 5.5 5.0, 5.5, 6.0, 6.5, 7.0, 7.5 units 03/14/2024 12:06 PM EDT [place] [address] Protein, Urine Negative Negative mg/dL 03/14/2024 12:06 PM EDT [place] [address] Urobilinogen, Urine 0.2 0.2, 1.0 mg/dL 03/14/2024 12:06 PM EDT [place] [address] Nitrite, Urine Negative Negative 03/14/2024 12:06 PM EDT [place] [address] Esterase, Urine Trace(A) Negative 03/14/2024 12:06 PM EDT [place] [address] Urine 03/14/2024 11:1 0 AM EDT 03/14/2024 12:06 PM EDT Daysi Benson DO LAB POINT OF CARE TE ST DOCKED DEVICE UNSOLICITED RESULTS [place] [address] [address] [facility] [phone] documented in this encounter Visit Diagnoses Diagnosis Dysuria- Primary HTN, goal below 140/90 Unspecified essential hypertension Heart murmur Undiagnosed cardiac murmurs Caregiver stress Other health problem within the family Screening for cardiovascular condition Screening for other and unspecified cardiovascular conditions Risk and functional assessment Screening for unspecified condition documented in this encounter Care Teams Herb Digger Relationship Specialty Start Date End Date Daysi Benson DO [address] [facility] [address] PCP - General Family Medicine 03/14/24 documented as of this encounter
--- OUTSIDE RECORDS SUMMARY | 2024-03-24 03:01 | External Medical Summary ---
Author Name Unknown Address Unknown Organization : Laboratory Report Ordering Provider Test Date Status MAGNUS HARDIN 03/14/2024 11:10:00 Final Observation Date Value Abnormality Reference (Units ) Status Color of Urine by Auto 03/14/2024 11:10:00 Dark Yellow Abnormal Light Yellow, Yellow Final Clarity, Urine 03/14/2024 11:10:00 Slightly Cloudy Abnormal Clear Final Glucose [Mass/volume] in Urine by Automated test strip 03/14/2024 11:10:00 Negative Negative (mg/dL) Final Bilirubin.total [Presence] in Urine by Automated test strip 03/14/2024 11:10:00 Negative Negative Final Ketones [Mass/volume] in Urine by Automated test strip 03/14/2024 11:10:00 Negative Negative (mg/dL) Final Specific gravity, Urine 03/14/2024 11:10:00 >=1.030 1.003-1.030 Final Hemoglobin [Presence] in Urine by Automated test strip 03/14/2024 11:10:00 Small Abnormal Negative Final pH, Urine 03/14/2024 11:10:00 5.5 5.0, 5.5, 6.0, 6.5, 7.0, 7.5 (units) Final Protein [Mass/volume] in Urine by Automated test strip 03/14/2024 11:10:00 Negative Negative (mg/dL) Final Urobilinogen, Urine 03/14/2024 11:10:00 0.2 0.2, 1.0 (mg/dL) Final Nitrite [Presence] in Urine by Automated test strip 03/14/2024 11:10:00 Negative Negative Final Leukocyte esterase [Presence] in Urine by Automated test strip 03/14/2024 11:10:00 Trace Abnormal Negative Final Performing Location
--- OUTSIDE RECORDS SUMMARY | 2024-03-24 03:01 | External Medical Summary | Summary of Care ---
Author Name Unknown Organization [facility] Address [address] [place] [address] Phone [phone] Care Team Providers Care General Office Dispatcher Name Role Phone Daniela Galan MD Primary Care Provider Reason for Visit * Reason Onset Date Comments Medication Refill 12/23/2023 Encounter Details Date Type Department Care Team (Late st Contact Info) Description 12/23/2023 Telephone Interventional Pain Center, [facility] [address] [place] [address] Sabrina Shelton PA-C [address] [place] [address] Medication Refill Allergies Active Allergy Reactions Criticality Noted Date Comments Penicillins Hives High 10/09/2014 documented as of this encounter (statuses as of 01/01/2024) Medications Medication Sig Dispensed Refills Start Date [...] as of this encounter (statuses as of 01/01/2024) Active Problems No known active problems documented as of this encounter (statuses as of 01/01/2024) Social History Tobacco Use Types Packs/Day Years [...] encounter Miscellaneous Notes * Telephone Encounter - Sabrina Shelton PA-C [...] to stop. Do not recommend mobic on watermelon inspector basis. Plan for repeat CMP in approximately six weeks. Limited injection almodovar - defers MRI due to significant claustrophobia. * Telephone Encounter - Kalyn Dozier OSA - 01/01/2024 10:22 AM EDT [facility] calling to check on status of meloxicam and cymbalta. Caller can be reached at [phone]. Patient states she had her bloodwork completed for the meloxicam. Patient states she previously discussed cymbalta however she has not heard anything in regards to if she could receive this medication. Please reach out to patient to discuss concerns. Thank you, Kalyn Dozier Curb Attendant [facility] 01/01/2024,10:22 [...] date the medication was ordered: 09/15/2023 Pharmacy: [facility] [address] [facility] Is this request for a controlled substance?No [...] classified documented in this encounter Care Teams General Office Dispatcher Relationship Specialty Start Date End Date Daniela Galan MD [address] [place] [address] PCP - General Family Medicine 02/24/18 documented as of this encounter
--- OUTSIDE RECORDS SUMMARY | 2024-03-24 03:01 | External Medical Summary | Summary of Care ---
Author Name Unknown Organization [facility] Address [address] [place] [address] Phone [phone] Care Team Providers Care Packaging Inspector Name Role Phone Daysi Benson DO Primary Care Provider [phone] Reason for Visit * Reason Comments Dosage Adjustment In Person (Anticoag Cl inic) Medication Management Encounter Details Date Type Department Care Team (Late st Contact Info) Description 03/14/2024 10:20 AM EDT Pharmacy Family Practice 65 [facility] [address] [place] [address] College, Pharmacist [address] [address] Medication management* Allergies Active Allergy Reactions Criticality Noted Date [...] by mouth in the morning. 02/19/2024 Active diphenhydrAMINE-A cetaminophen 12.5-500 MG Oral Tablet Take 1 Tablet by mouth at bedtime. Active Beet Root 500 MG Oral Capsule Take 2 Each by mouth in the morning. (Gummies). Active Meloxicam 15 MG Oral TabletIndications :Sacroiliitis [...] on file documented as of this encounter Progress Notes * Jenae Gomez, [facility] - 03/14/2024 10:16 AM EDT Medication Therapy Disease Management [facility] - Medication Reconciliation Encounter Type: discussed with patient Med Rec Reason: New Patient Prescription insurance information: [facility] Cuauhtemoc Do you have any other prescription coverage: No Preferred pharmacy: [place] [facility] [x] Problem list reviewed [x] Allergies reviewed and updated if needed [x] Drug interaction check completed [x] HEDIS list addressed Immunizations: declined today . Doesn't get Flu or COVID shots, has been thinking about shingrix. Medication Organization/Adherence: Has home care nurse or caregiver: no Patient uses a pill box? No When you are at home, how often do you miss doses of medications? Never How difficult is it for you to pay for your medications? Not difficult at all How often do you experience side effects from your medications? Never Reports specifically being worried about sertraline + duloxetine due to serotonin syndrome but has not started duloxetine yet. Labs/Vitals/Risk Scores: The ASCVD Risk score (Mehdi DK, et al., 2019) failed to calculate for the following reasons: Cannot find a previous HDL lab Cannot find a previous total cholesterol lab BP Readings from Last 3 Encounters: 03/14/24 180/96 01/14/24 138/94 08/14/23 183/81 No results for input(s): "HGBA1C" in the last 94919 hours. Recent Labs Units 12/25/23 1348 ESTIMATED GLOMERULAR FILTRATION RATE - [facility] mL/min 60 Serum creatinine: 1 mg/dL 12/25/23 1348 Estimated creatinine clearance: 55.6 mL/min Assessment & Plan: Medication discrepancies identified: update per patient intake. Dose/frequency of medications appropriate for current renal function? yes Other medication problems identified: - patient taking Tylenol PM - discussed risks of diphenhydramine as patient ages including constipation, dry mouth, confusion and falls. - uncontrolled HTN - patient reports multiple high BPs in past, but pcp didn't address it. Patient education provided: - Discussed with patient benefits of indicated vaccines. Also discussed mail order. - discussed serotonin syndrome with patient - low likelihood for that on low doses of sertraline and duloxetine. Referral pended for follow up management of: N/A Summary- Changes & Recommendations: Med rec completed with patient. She will think about shingrix vaccines and let us know. I spent a total of 10-19 minutes (exact time 18 mins) on the date of service in preparation, delivery, and documentation of the care provided to Jolie Izquierdo excluding any time spent in the performance of separately billed services or time spent by another provider/QHP. Jenae Fiore [facility] Clinical Pharmacist - Musical Engineer Medication Therapy Management Clinic 03/14/2024, 10:16 AM documented in this encounter Plan of Treatment Upcoming Encounters Date Type Department Care Team (Late st Contact Info) Description 03/28/2024 2:30 PM EDT Nurse Only Family Practice 65 [facility] 293 [facility], [place] [address] [place], Nurse Fam Prac [address] [address] 03/28/2024 3:30 PM EDT [facility] [address] [place] [address] 06/14/2024 2:20 PM EST Office Visit Family Practice 65 [facility] 293 [facility] [address] Daysi Benson DO 293 [facility] [place] [address] Health Maintenance Due Date Last Done Comments Lipid Panel 1952 Albumin/Creatinine Ratio 1970 Cologuard 1997 Colonoscopy 1997 Fecal Occult Blood Test 1997 Sigmoidoscopy 1997 COVID-19 Vaccine (1 - 2022-2 4 season) 2023 Colorectal Cancer [...] as of this encounter Visit Diagnoses Diagnosis Medication management- Primary Encounter for long-term (current) use of other medications documented in this encounter Care Teams Packaging Inspector Relationship Specialty Start Date End Date Daysi Benson DO [address] [place] [address] PCP - General Family Medicine 03/14/24 documented as of this encounter
--- OUTSIDE RECORDS SUMMARY | 2024-03-24 03:01 | External Medical Summary | Summary of Care ---
Author Name Unknown Organization [facility] Address [address] [place] [address] Phone [phone] Care Team Providers Care Hatchery Supervisor Name Role Phone Daniela Galan MD Primary Care Provider Reason for Visit * Reason Comments Follow Up Encounter Details Date Type Department Care Team (Latest Contact Info) Description 09/25/2023 3:30 PM [facility] Telemedicine Interventional Pain Center, [facility] [address] [place] [address] Sabrina Shelton PA-C [address] [place] [address] Sacroiliitis (HCC)*; Spondylosis of lumbar region without myelopathy or radiculopathy Allergies Active Allergy Reactions Criticality Noted Date Comments Penicillins Hives High 10/09/2014 documented as of this encounter (statuses as of 09/25/2023) Medications Medication Sig Dispensed Refills Start Date End Date Status Sertraline HCl 50 MG Oral Tablet (Zoloft) Take 1 Tablet by mouth in the morning. 0 02/14/2023 Active Meloxicam 15 MG Oral TabletIndications:Sac roiliitis (HCC) Take 1 Tablet by mouth in the morning. 30 Tablet 2 09/15/2023 Active documented as of this encounter (statuses as of 09/25/2023) Active Problems No known active problems documented as of this encounter (statuses as of 09/25/2023) Social History Tobacco Use Types Packs/Day Years [...] as of this encounter Progress Notes * Sabrina Shelton PA-C - 09/25/2023 3:44 PM EST Name: Jolie Izquierdo Date: 09/25/2023 After connecting to the patient via telephone, the patient was identified by name and date of . Patient was then informed that this was a telephone call only visit. The patient agreed to participate. Visit Disposition: Routine follow-up Total call duration 12 minutes. HPI: Jolie Izquierdo is a 72 year old female known to the Pain Management clinic presents for follow up after L SI joint injection on 08/14. Admits 50% pain reduction overall. Locates pain L low back andbuttock. Described as "hurt, burning" L buttock and proximal thigh. Denies progressive LE weakness or paresthesia. Denies bowel/bladder dysfunction. Using mobic for pain relief. Questions if cymbalta could be considered, her friend uses it for pain with some benefit. She prefers to avoid gabapentin as previously discussed, concerned for dizziness/drowsiness. History: Past Medical History: Diagnosis Date Depression Sciatica Past Surgical History: Procedure Laterality Date LAPAROSCOPY; CHOLECYSTECTOMY SACROILIAC JOINT INJECT W/GUIDANCE 08/14/2023 INJECTION SACROILIAC JOINT performed by Pablito Hall, at OR [facility] TOTAL ABD HYSTERECTOMY W/WO REMOVAL OF TUBE(S) with oophorectomy Current Outpatient Medications Medication Sig Dispense Refill Sertraline HCl 50 MG Oral Tablet (Zoloft) Take 1 Tablet by mouth in the morning. Meloxicam 15 MG Oral Tablet Take 1 Tablet by mouth in the morning. 30 Tablet 2 No current facility-administered medications for this visit. Review of patient's allergies indicates: Allergen Reactions Penicillins Hives ASSESSMENT: L SI joint dysfunction RECOMMENDATION: Admits moderate relief of L low back and buttock pain that is prolonged with injection therapy. Cancomplete daily activities with mild to moderate low back discomfort. Encouraged to continue conservative care including home exercise/stretching program and medication management. Advised to call if pain worsens - consider repeat injection and or L spine CT - declines MRI due to significant claustrophobia. Follow up as needed. Discussed possible cymbalta trial, will message PCP - also using zoloft. Total call duration 12 minutes. Sabrina Shelton PA-C 09/25/2023 documented in this encounter Plan of Treatment [...] of this encounter Visit Diagnoses Diagnosis Sacroiliitis (HCC)- Primary Sacroiliitis, not elsewhere classified Spondylosis of lumbar region without myelopathy or radiculopathy Lumbosacral spondylosis without myelopathy documented in this encounter Care Teams Hatchery Supervisor Relationship Specialty Start Date End Date Daniela Galan MD [address] [place] [address] PCP - General Family Medicine 02/24/18 documented as of this encounter
--- OUTSIDE RECORDS SUMMARY | 2024-03-24 03:01 | External Medical Summary ---
Author Name Unknown Address Unknown Organization K01:LABORATORY [facility] - [address] [place] [id number] Laboratory Report Ordering Provider Test Date Status WILFREDMAGNUS 03/14/2024 11:38:20 Final Observation Date Value Abnormality Reference (Units) Status Bacteria identified in Specimen by Culture 03/14/2024 11:38:20 No significant growth Final Test: Culture, Urine, Quant itative
Specimen Source: Urine, Clean Catch
Specimen Type: Urine
Specimen Date: 03/14/2024 1138
Result Date: 03/15/2024 1629
Result Status: Final result
Resulting Lab: LAB[facility]ATORY [facility]
[address]
[place] [facility]

CULTURE

No significant growth

null Performing Location LABORATORY [facility] - [address] [facility] [address]
[2024-03-24 05:50] LABS: Hematocrit (blood only) 36.2 % (37.0-47.0); Hemoglobin 12.2 g/dl (12.0-16.0); Mean Corpuscular Hemoglobin 30.7 pg (25.0-34.0); Mean Corpuscular Hgb Conc 33.7 g/dL (32.0-36.0); Mean Corpuscular Volume 91.2 fL (80.0-100.0); Mean Platelet Volume 11.3 fL (9.4-12.4); Platelet Count 185 K/uL (130-400); RDW Coefficient of Variation 12.5 % (11.5-14.5); RDW Standard Deviation 41.4 fL (36.4-46.3); Red Blood Count 3.97 M/uL (4.20-5.40); White Blood Count 8.34 K/ul (4.8-10.8)
[2024-03-24 06:09] LABS: Calcium 9.8 mg/dl (8.6-10.3); Creatinine Clr Calc Pharmacy 69.1 ml/min; Est GFR (Non-African American) 74.2 ml/min; Magnesium 2.1 mg/dl (1.7-2.4); Potassium 4.2 mmol/L (3.5-5.1)
[2024-03-24 06:15] LABS: ANTI-Xa, UFH(UnfractionatedHep 0.36 IU/ml (0.3-0.7)
[2024-03-24 07:08] LABS: Estimated Average Glucose 117 mg/dl; Hemoglobin A1C 5.7 % (4.5-5.6)
[2024-03-24] MEDS: ASPIRIN 81 MG ECTAB PO SCH (08:53)
[2024-03-24] MEDS ORDERED: lisinopril 20 MG TAB PO SCH (09:00)
--- NOTE | 2024-03-24 09:33 | Hospitalist Progress Note ---
Date of Service March 24, 2024 Assessment & Plan (1) Non-STEMI (non-ST elevated myocardial infarction): (2) Hypertensive urgency: Plan: Patient presents with dizziness and nausea Recent diagnosis of hypertension on lisinopril 10 mg once a day Blood pressure elevated to SBP of 200s on presentation High-sensitivity troponin elevated to 685; down trended to 597 EKG reviewed; normal sinus rhythm; nonspecific ST and T wave changes. LVH by voltage criteria Echocardiogram shows EF of 55 to 60% with grade 1 diastolic dysfunction. LVH is asymmetric greatest at the apex. Severe concentric LVH noted. Status post cardiac cath on 03/24; nonobstructive CAD. Continue on aspirin and Lipitor along with metoprolol 25 mg twice a day For high blood pressure; metoprolol 50 mg twice a day, nifedipine 60 mg once a day added. lisinopril dc as per cardiology Telemetry monitoring (3) Hyperglycemia: Plan: Prediabetes with HbA1c of 5.7% Recommend diet control (4) Hyperlipidemia: Plan: Started Lipitor 80 mg once a day Mood disordercontinue sertraline Plan Full code DVT prophylaxis heparin Time spent evaluating patient, direct bedside care, chart review, placing orders, interpretation of diagnostic studies, discussion with consultants, patient, and family members, as well as other required patient management activities is 50 minutes Please note the above document was generated using voice recognition software. It may contain grammatical, syntax or spelling errors. Any formal questions or concerns about the content, text or information contained within the body of this dictation should be directly addressed to the provider for clarification Admission and Anticipated Discharge Date Admission Date: March 23, 2024 Subjective Patient seen and examined at bedside. Comfortable; not in distress. Denies fever, chills, chest pain, shortness of breath, abdominal pain or urinary symptoms. No significant overnight events Review of Systems Review of Systems: All systems reviewed & are unremarkable except as noted in Subjective Physical Exam Physical Exam: Constitutional: Alert, ill in appearance, nontoxic HEENT: Mucous membranes moist. Sclera clear Neck: Soft, no adenopathy Lungs: Clear to auscultation, decreased, no wheezes rales or rhonchi CV: S1-S2, regular, Abdomen: Soft, nontender, nondistended Extremities: No significant edema Musculoskeletal: No significant joint tenderness Neuro: No focal deficits Psych: Cooperative, normal mood Results & Data Results & Data Vital Signs (Past 12 Hours) Vital Signs Temp Pulse Pulse Resp BP BP BP 03/24/24 08:15 61 03/24/24 08:04 36.9 C 82 19 192/97 H 03/24/24 03:05 36.7 C 111 H 18 175/80 H 03/24/24 01:31 56 L 199/76 H 03/24/24 01:16 69 185/90 H 03/23/24 23:00 36.7 C 68 18 177/84 H 03/23/24 22:04 84 Pulse Ox O2 Del Method 03/24/24 08:15 03/24/24 08:04 97 Room Air 03/24/24 03:05 97 Room Air 03/24/24 01:31 03/24/24 01:16 03/23/24 23:00 96 Room Air 03/23/24 22:04
[2024-03-24] MEDS: NIFEdipine EXTENDED REL 30 MG TABCR PO SCH (10:20)
--- NOTE | 2024-03-24 11:47 | Cardiology Consultation ---
Date of Consultation March 24, 2024 Assessment & Plan (1) Precordial chest pain: (2) Hypertensive urgency: (3) Elevated troponin: (4) Hypertrophic cardiomyopathy: Plan 73-year-old female with chart history of hypertrophic cardiomyopathy and recent evaluation for untreated hypertension presented after symptoms of chest pressure and chest tightness at home marked elevation of blood pressure Concerns raised regarding hypertensive urgency and antihypertensive regimen initiated as well as anticoagulation due to elevated troponins Troponins are significantly elevated but flat No wall motion abnormalities on echocardiogram but severe LVH with apical predominance. EKGs with high voltage changes of left hypertrophy and strain ST segment abnormalities, ischemia not excluded Plan: Patient referred for diagnostic coronary angiography today. Risk factors include current symptoms hypertension abnormal EKG elevated troponin and hyperlipidemia Further recommendations pending results of imaging. Patient to remain n.p.o. until complete Will continue to treat hypertension present. Goal given small LV cavity and hyperdynamic LV function will be upward titration of beta-flores possible reduction in VICKEY inhibitor Hyperlipidemia will warrant treatment Cardiology will follow History of Present Illness Reason for Consultation: Hypertensive urgency, chest pain, elevated troponin [facility]: Prince Denton MD History of Present Illness Patient is a 73-year-old female admitted for severe hypertension, symptoms of chest pressure and shortness of breath acutely. Prior records reflect diagnosis of hypertrophic cardiomyopathy on note of 2018. Patient recently started on antihypertensive regimen in the last 1 to 2 weeks with lisinopril due to elevated blood pressures. Date of admission patient developed symptoms of acute shortness of breath and chest tightness felt not well. Blood pressure checked at home significantly elevated and patient sought ER evaluation. Antihypertensive regimen increased in hospital but still hypertension present Otherwise asymptomatic. No chest pains. Patient has been aware of increasing exertional dyspnea. No tachypalpitations syncope or near syncope. No fevers chills or unexplained infections. No bleeding difficulties. No edema or acute weight gain or loss. Just establish primary care through [facility]. Initial evaluation 03/14/2024 Allergies Allergy/AdvReac Type Severity Reaction Status Date / Time Penicillins AdvReac Severe Hives Verified 03/23/24 20:36 Home Medications Medication Instructions Recorded Confirmed Type sertraline 50 mg tablet 50 mg PO DAILY #30 tabs 12/17/23 03/23/24 Rx lisinopril 10 mg tablet 10 mg PO QAM 03/23/24 03/23/24 History Patient History Medical History Elevated BP without diagnosis of hypertension Surgical History S/P cholecystectomy S/P hysterectomy S/P wisdom tooth extraction Family History Mother Hypertension Father Hypertension Denies family history of Ovarian cancer Prostate cancer Myocardial infarction Breast cancer Colorectal cancer Social History Smoking Status: Never smoker Second Hand Exposure: No; Do You Dip or Chew Tobacco: No; Hx Alcohol Use: No Hx Substance Use: No Preferred Language: [place]ese Communication Ability: Effective Visual Impairment: No Limitations Hearing Ability: Normal Dogger Required: No Beliefs That Will Affect Care: None marital status: Current Living Situation: Spouse Current Living Situation Comment: lives at home with current occupational status: retired 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 Other Information That Helps Us Care for You: No Feels Safe at Home: Yes Safety Concerns: Feels Safe At This Time Childhood Exposure to Second-Hand Smoke: Yes Diet: regular Dental Care, Regularly: Yes Physical Activity Frequency: Does not Exercise Seatbelt Use: always Sunscreen Use: Yes Assistive Devices: Denture - Upper and Glasses Review of Systems Review of Systems: All systems reviewed & are unremarkable except as noted in HPI & below Physical Exam Constitutional: WD/WN, vitals as above no acute distress Eyes: PERRL, conjunctivae normal, anicteric sclerae ENMT: external ear and nose normal, oropharynx normal Neck: trachea midline, no thyromegaly Respiratory: normal respiratory effort, lungs clear to auscultation Cardiovascular: Rate/Rhythm: regular rate and regular rhythm Heart Sounds: normal S1, normal S2 and + murmur (Grade 2 over 6 systolic) Vessels: no JVD Extremities: no edema Gastrointestinal (Abdomen): normal bowel sounds, soft, nontender, no hepatosplenomegaly Musculoskeletal: no cyanosis or clubbing, extremities motor strength 5/5 Results & Data Vital Signs (Past 12 Hours) Vital Signs Temp Pulse Pulse Resp BP BP BP 03/24/24 10:20 204/80 H 08/15/24 08:15 61 03/24/24 08:04 36.9 C 82 19 192/97 H 03/24/24 03:05 36.7 C 111 H 18 175/80 H 03/24/24 01:31 56 L 199/76 H 03/24/24 01:16 69 185/90 H Pulse Ox O2 Del Method 03/24/24 10:20 03/24/24 08:15 03/24/24 08:04 97 Room Air 03/24/24 03:05 97 Room Air 03/24/24 01:31 03/24/24 01:16 Laboratory Results Laboratory Results - last 24 hr 03/23/24 03/23/24 03/23/24 16:46 18:39 20:44 WBC 8.17 RBC 4.34 Hgb 13.4 Hct 39.7 MCV 91.5 MCH 30.9 MCHC 33.8 RDW Std Deviation 41.4 RDW Coeff of Phuong 12.4 Plt Count 212 MPV 11.2 Immature Gran % (Auto) 0.2 Neut % (Auto) 76.0 Lymph % (Auto) 14.3 Taney % (Auto) 6.6 Eos % (Auto) 2.0 Baso % (Auto) 0.9 Neut # (Auto) 6.21 Lymph # (Auto) 1.17 L Taney # (Auto) 0.54 Eos # (Auto) 0.16 Baso # (Auto) 0.07 Immature Gran # (Auto) 0.02 PT 10.8 INR 1.0 Heparin Anti-Xa, Unfract Sodium 139 Potassium 4.5 Chloride 108 H Carbon Dioxide 23 Anion Gap 8 BUN 25 H Creatinine 1.04 Est Cr Clr Drug Dosing 53.1 Est GFR ( Amer) 62.6 Est GFR (Non-Af Amer) 54.0 BUN/Creatinine Ratio 24.0 H Glucose 124 H Estimat Average Glucose Hemoglobin A1c Calcium 9.8 Magnesium Total Bilirubin 0.8 AST 26 ALT 21 Alkaline Phosphatase 61 Troponin I High Sens 685.6 H* 676.2 H* 674.3 H* Total Protein 7.4 Albumin 4.9 Globulin 2.5 Albumin/Globulin Ratio 2.0 Triglycerides Cholesterol LDL Cholesterol, Calc VLDL Cholesterol, Calc HDL Cholesterol Cholesterol/HDL Ratio 03/24/24 03/24/24 00:41 05:19 WBC 8.34 RBC 3.97 L Hgb 12.2 Hct 36.2 L MCV 91.2 MCH 30.7 MCHC 33.7 RDW Std Deviation 41.4 RDW Coeff of Phuong 12.5 Plt Count 185 MPV 11.3 Immature Gran % (Auto) Neut % (Auto) Lymph % (Auto) Taney % (Auto) Eos % (Auto) Baso % (Auto) Neut # (Auto) Lymph # (Auto) Taney # (Auto) Eos # (Auto) Baso # (Auto) Immature Gran # (Auto) PT INR Heparin Anti-Xa, Unfract 0.41 0.36 Sodium 139 Potassium 4.2 Chloride 108 H Carbon Dioxide 22 Anion Gap 9 BUN 24 H Creatinine 0.80 Est Cr Clr Drug Dosing 69.1 Est GFR ( Amer) 86.0 Est GFR (Non-Af Amer) 74.2 BUN/Creatinine Ratio 30.0 H Glucose 111 H Estimat Average Glucose 117 Hemoglobin A1c 5.7 H Calcium 9.8 Magnesium 2.1 Total Bilirubin AST ALT Alkaline Phosphatase Troponin I High Sens 597.1 H* Total Protein Albumin Globulin Albumin/Globulin Ratio Triglycerides 161 H Cholesterol 235 H LDL Cholesterol, Calc 156 VLDL Cholesterol, Calc 32 H HDL Cholesterol 47 Cholesterol/HDL Ratio 5.0 Diagnostic Findings Echocardiogram 03/24/2024 Severe left ventricular hypertrophy with apical predominance, small LV cavity size and normal LV systolic function. No significant valvular disease. There is minimal outflow tract obstruction at rest
--- NOTE | 2024-03-24 11:57 | Electrocardiogram Report ---
Test Reason : Blood Pressure : */* mmHG Vent. Rate : 91 BPM Atrial Rate : 91 BPM P-R Int : 168 ms QRS Dur : 108 ms QT Int : 394 ms P-R-T Axes : 25 -35 126 degrees QTcB Int : 484 ms Normal sinus rhythm with sinus arrhythmia Possible Left atrial enlargement Left axis deviation Left ventricular hypertrophy with repolarization abnormality ( R in aVL ) Abnormal ECG No previous ECGs available Confirmed by Elkin Payne ([id number]) on 03/24/2024 11:57:04 AM Referred By: REFERRED SELF Confirmed By: Elkin Payne
--- NOTE | 2024-03-24 12:15 | Electrocardiogram Report ---
Test Reason : Blood Pressure : */* mmHG Vent. Rate : 62 BPM Atrial Rate : 62 BPM P-R Int : 180 ms QRS Dur : 106 ms QT Int : 480 ms P-R-T Axes : 67 -34 120 degrees QTcB Int : 487 ms Normal sinus rhythm Biatrial enlargement Left axis deviation Left ventricular hypertrophy with repolarization abnormality Abnormal ECG When compared with ECG of 23-Mar-2024 16:32, (unconfirmed) ST more depressed Lateral leads T wave inversion more evident in Anterolateral leads Confirmed by Elkin Payne ([id number]) on 03/24/2024 12:14:49 PM Referred By: REFERRED SELF Confirmed By: Elkin Payne
[2024-03-24] MEDS: NITROGLYCERIN/D5W 100MCG/ML 20ML SYR ONE (13:33)
[2024-03-24] MEDS: niCARdipine HCL INJ 2.5 MG/ML 10 ML AMP ONE (13:33)
[2024-03-24] MEDS: fentaNYL citrate PF 100 MCG/2 ML VIAL ONE (13:48)
[2024-03-24] MEDS: MIDAZOLAM HCL 1 MG/ML 2ML VIAL ONE (13:48)
[2024-03-24] MEDS: HEPARIN (PORCINE) 1000 UNIT/ML 10 ML (CATH LAB USE ONLY) ONE (13:48)
[2024-03-24] MEDS: OPTIRAY 350 ONE (13:49)
--- NOTE | 2024-03-24 14:00 | Pre Anesthesia Assessment ---
Date of Service March 24, 2024 Pre Sedation Assessment Vital Signs Temp Pulse Pulse Pulse Resp BP BP 03/24/24 12:12 74 16 03/24/24 11:56 64 202/81 H 03/24/24 11:21 98.2 F 59 L 20 03/24/24 10:20 204/80 H 03/24/24 08:15 61 03/24/24 08:04 98.4 F 82 19 03/24/24 03:05 98.1 F 111 H 18 175/80 H 03/24/24 01:31 56 L 199/76 H 03/24/24 01:16 69 185/90 H 03/23/24 23:00 98.1 F 68 18 177/84 H 03/23/24 22:04 84 03/23/24 20:35 70 03/23/24 20:25 98.1 F 71 18 212/83 H 03/23/24 18:55 65 20 03/23/24 18:36 68 238/103 H 03/23/24 17:57 86 198/110 H 03/23/24 16:53 87 20 03/23/24 16:49 89 03/23/24 16:41 92 H 20 03/23/24 16:23 97.2 F L 99 H 20 222/97 H BP Pulse Ox O2 Del Method 03/24/24 12:12 205/86 H 98 Room Air 03/24/24 11:56 03/24/24 11:21 202/81 H 96 Room Air 03/24/24 10:20 03/24/24 08:15 03/24/24 08:04 192/97 H 97 Room Air 03/24/24 03:05 97 Room Air 03/24/24 01:31 03/24/24 01:16 03/23/24 23:00 96 Room Air 03/23/24 22:04 03/23/24 20:35 03/23/24 20:25 96 Room Air 03/23/24 18:55 238/103 H 97 Nasal Cannula 03/23/24 18:36 03/23/24 17:57 03/23/24 16:53 95 Room Air 03/23/24 16:49 03/23/24 16:41 226/112 H 96 Room Air 03/23/24 16:23 97 Room Air Cardiovascular + regular rate Respiratory + respiratory effort normal Pre-Sedation Airway Assessment Smoking Status: Never smoker Hx Sleep Apnea: No Hx Difficult Intubation: No Short, Thick Neck: No Thyromental Distance: > or= 3.5 Finger Breadths Oral Cavity: + Dentures Mallampati Class: III ASA: ASA3 NPO Status Date of Last Intake of Fluids: 03/23/24 Time of Last Intake of Fluids: 20:00 Date of Last Intake of Solid Food: 03/23/24 Time of Last Intake of Solid Foods: 20:00 Procedure Planning Contraindications for Sedation: none Current Medications Reviewed: Yes Notes The planned sedation has been discussed with the patient. Informed Consent was obtained. I have identified the patient, determined the appropriateness of sedation and have assessed the patient immediately prior to the procedure. All medicine(s) and interventions are by my order.
--- NOTE | 2024-03-24 14:00 | Post Anesthesia Assessment ---
Date of Service March 24, 2024 Post Sedation Assessment Vital Signs Temp Pulse Pulse Pulse Resp BP BP 03/24/24 12:12 74 16 03/24/24 11:56 64 202/81 H 03/24/24 11:21 98.2 F 59 L 20 03/24/24 10:20 204/80 H 03/24/24 08:15 61 03/24/24 08:04 98.4 F 82 19 03/24/24 03:05 98.1 F 111 H 18 175/80 H 03/24/24 01:31 56 L 199/76 H 03/24/24 01:16 69 185/90 H 03/23/24 23:00 98.1 F 68 18 177/84 H 03/23/24 22:04 84 03/23/24 20:35 70 03/23/24 20:25 98.1 F 71 18 212/83 H 03/23/24 18:55 65 20 03/23/24 18:36 68 238/103 H 03/23/24 17:57 86 198/110 H 03/23/24 16:53 87 20 03/23/24 16:49 89 03/23/24 16:41 92 H 20 03/23/24 16:23 97.2 F L 99 H 20 222/97 H BP Pulse Ox O2 Del Method 03/24/24 12:12 205/86 H 98 Room Air 03/24/24 11:56 03/24/24 11:21 202/81 H 96 Room Air 03/24/24 10:20 03/24/24 08:15 03/24/24 08:04 192/97 H 97 Room Air 03/24/24 03:05 97 Room Air 03/24/24 01:31 03/24/24 01:16 03/23/24 23:00 96 Room Air 03/23/24 22:04 03/23/24 20:35 03/23/24 20:25 96 Room Air 03/23/24 18:55 238/103 H 97 Nasal Cannula 03/23/24 18:36 03/23/24 17:57 03/23/24 16:53 95 Room Air 03/23/24 16:49 03/23/24 16:41 226/112 H 96 Room Air 03/23/24 16:23 97 Room Air Recovery Score Activity: Moves 4 extremities Circulation: +/-20% PreAnes Value Consciousness: Fully Awake Oxygen Saturation: O2 needed for >90% Discharge Sedation Level of Care: Fast Track Phase II Post Sedation Plan On clinical assessment, the patient appears to have tolerated the sedation without complications. Patient is recovering as anticipated. Patient will continue to be monitored by nursing and may be discharged when sedation discharge criteria are met per below protocol. Upon Completions of procedure up to 15 minutes continue every 5 minute vital signs and the P.A.R. score; then discharge to a Phase I or Fast Track to Phase II per the following guidelines: * Discharge Patient to appropriate Phase II area if PAR is 8 or greater or return to pre- procedure baseline. The post - procedure orders will be as directed. * If PAR score is less than 8 or not return to pre-procedure baseline then patient will follow Phase I monitoring till PAR is reached for Phase II. The Phase I may be done in procedure room or may call to secure a Phase I area. * If naloxone or flumazenil are used for reversal, hold in Phase I for continued monitoring from when last reversal dose was given for a minimum of 60 minutes or longer pending the nurse and/or physician discretion of patient condition before discharge to Phase II. Please call the Sedation Physician to re-evaluate and complete post-note for discharge to Phase II area. Do NOT discharge from procedure sedation or Phase 1 until post- sedation evaluation note is complete by procedure /sedation MD Sedation Discharge Instructions to be given to the patient at discharge to home.
--- NOTE | 2024-03-24 14:13 | Cardiac Catheterization ---
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 Cardiac Status Clinical evaluation leading to the procedure CAD Presenation: Non STEMI Anginal Classification: CCS III Diagnostic Physicians Name: Joe King MD Closure Device Recommendations: Medical Therapy and/or Counseling Cardiac Cath Procedure Full Procedure Date March 24, 2024 Pre-Procedure Diagnosis Pre-Procedure Diagnosis: Non STEMI AUC Score AUC Score: 7 Post-Procedure Diagnosis Post-Procedure Diagnosis: Mild CAD and Elevated Intracardiac Pressures Procedure(s) Performed Procedure(s) Performed: Coronary Angiography and Left Heart Cath Industrial Economist Joe King MD Food Bagging Machine Operator(s) Gustavo Estimated Blood Loss Estimated Blood Loss: 10 Medication(s) Medication(s): Fentanyl, Heparin, Lidocaine 1%, Nicardipine, Nitroglycerin and Versed Summary of Findings Indication: NSTEMI Access: 6 Fr right radial artery Catheters: [place] Findings: LM -large caliber, luminal irregularities LAD -medium caliber, 30% proximal disease, 40% mid segment disease at takeoff of D2. Remainder of mid and distal vessel without significant disease and wraps around apex. Large D2 40-50% ostial stenosis. Circumflex -dominant, large caliber vessel, 20 to 30% mid segment disease. Large OM1, OM 2 and left PDA without significant disease. RCA -small, nondominant, angiographically normal LVEDP -14 Gradient across LVOT 85-90 mmHg Arterial Closure: TR band Summary: 1. Mild to moderate nonobstructive coronary artery disease -30% proximal, 40% mid LAD. 40-50% ostial large D2 25% mid dominant circumflex 2. Normal left-sided filling pressure. 3. Severe LVOT/intracavitary gradient (85-90 mmHg). Recommendations: Medical management of nonobstructive CAD Additional beta-blockers and management of HCM per Dr. 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 Any exceptions are noted below. Shout[facility] Card Cath Procedure Codes Cardiac Catheterization Procedure 1: Cardiovascular Cath Procedures: 62186 Coronaries and LHC (+/-LV) Moderate Sedation Procedure 1: Sedation/Anesthesia: 18021 Mod Sedation by the same physician;Init15 Min Child Age 5 & Up PG Care Time/CCT Total # of Minutes Spent Total Time Spent with Patient: Total time spent is greater than 50% in coordination of care (as documented) at patient's floor/unit and/or counseling patient:
--- NOTE | 2024-03-24 15:52 | Communication Note ---
Date of Service: March 24, 2024 Results of cardiac catheterization were discussed in detail with patient and daughter. Study demonstrated mild to moderate atherosclerosis without obstruction. Echocardiogram and catheterization confirmed hypertrophic cardiomyopathy with elevated interventricular pressures and obstruction. Impression: Elevated troponin secondary to hypertension and hypertrophic obstructive cardiomyopathy Will recommend treating with beta-flores changing to metoprolol succinate 50 mg twice per day. Hold lisinopril and nifedipine for time being to allow upward titration of beta-flores. Discussed findings with patient and daughter we will plan on event monitor post hospital discharge and close cardiology follow-up. Recommended screening of first-degree relatives
[2024-03-24] MEDS ORDERED: METOPROLOL TARTRATE 50 MG TAB PO SCH (17:00)
[2024-03-24] MEDS: HEPARIN SOD 5,000 UNIT/0.5 ML VIAL SQ SCH (20:25)
[2024-03-24] MEDS: METOPROLOL SUCC 50MG EXT REL TAB PO SCH (20:29)
[2024-03-25 07:25] VITALS: RESP 19
[2024-03-25 07:49] LABS: Basophils # (auto) 0.06 K/uL (0.00-0.20); Basophils % (auto) 0.8 %; Eosinophils # (auto) 0.21 K/uL (0.00-0.50); Eosinophils % (auto) 2.7 %; Hematocrit (blood only) 38.1 % (37.0-47.0); Hemoglobin 12.8 g/dl (12.0-16.0); Immature Granulocytes # (auto) 0.03 K/uL (0.01-0.20); Immature Granulocytes % (auto) 0.4 %; Lymphocytes # (auto) 2.12 K/uL (1.20-3.40); Lymphocytes % (auto) 27.1 %; Mean Corpuscular Hemoglobin 30.6 pg (25.0-34.0); Mean Corpuscular Hgb Conc 33.6 g/dL (32.0-36.0); Mean Corpuscular Volume 91.1 fL (80.0-100.0); Mean Platelet Volume 11.3 fL (9.4-12.4); Monocytes # (auto) 0.66 K/uL (0.11-0.59); Monocytes % (auto) 8.4 %; Neutrophils # (auto) 4.75 K/uL (1.40-6.50); Neutrophils % (auto) 60.6 %; Platelet Count 186 K/uL (130-400); RDW Coefficient of Variation 12.6 % (11.5-14.5); RDW Standard Deviation 41.4 fL (36.4-46.3); Red Blood Count 4.18 M/uL (4.20-5.40); White Blood Count 7.83 K/ul (4.8-10.8)
[2024-03-25 08:04] LABS: BUN Creatinine Ratio 27.8 (10-20); Calcium 9.4 mg/dl (8.6-10.3); Creatinine Clr Calc Pharmacy 61.9 ml/min; Est GFR (African American) 74.6 ml/min; Est GFR (Non-African American) 64.3 ml/min; Potassium 4.1 mmol/L (3.5-5.1)
[2024-03-25] MEDS ORDERED: lisinopril 20 MG TAB PO SCH (09:00)
--- NOTE | 2024-03-25 09:13 | Hospitalist Progress Note ---
Date of Service March 25, 2024 Assessment & Plan (1) Non-STEMI (non-ST elevated myocardial infarction): (2) Hypertensive urgency: (3) Hypertrophic cardiomyopathy: Plan: Patient presents with dizziness and nausea Recent diagnosis of hypertension on lisinopril 10 mg once a day Blood pressure elevated to SBP of 200s on presentation High-sensitivity troponin elevated to 685; down trended to 597 EKG reviewed; normal sinus rhythm; nonspecific ST and T wave changes. LVH by voltage criteria Echocardiogram shows EF of 55 to 60% with grade 1 diastolic dysfunction. LVH is asymmetric greatest at the apex. Severe concentric LVH noted. Status post cardiac cath on 03/24; nonobstructive CAD. Continue on aspirin and Lipitor. Started on beta-flores; currently on metoprolol 50 mg twice a day. Lisinopril and nifedipine stopped. Recommend to continue to monitor home blood pressure. (4) Hyperglycemia: Plan: Prediabetes with HbA1c of 5.7% Recommend diet control (5) Hyperlipidemia: Plan: Started Lipitor 80 mg once a day Mood disordercontinue sertraline Plan Full code DVT prophylaxis heparin Time spent evaluating patient, direct bedside care, chart review, placing orders, interpretation of diagnostic studies, discussion with consultants, patient, and family members, as well as other required patient management activities is 50 minutes Please note the above document was generated using voice recognition software. It may contain grammatical, syntax or spelling errors. Any formal questions or concerns about the content, text or information contained within the body of this dictation should be directly addressed to the provider for clarification Admission and Anticipated Discharge Date Admission Date: March 23, 2024 Subjective Patient seen and examined at bedside. Comfortable; not in distress. Denies fever, chills, chest pain, shortness of breath, abdominal pain or urinary symptoms. No significant overnight events Physical Exam Physical Exam: Constitutional: Alert, ill in appearance, nontoxic HEENT: Mucous membranes moist. Sclera clear Neck: Soft, no adenopathy Lungs: Clear to auscultation, decreased, no wheezes rales or rhonchi CV: S1-S2, regular, Abdomen: Soft, nontender, nondistended Extremities: No significant edema Musculoskeletal: No significant joint tenderness Neuro: No focal deficits Psych: Cooperative, normal mood Results & Data Results & Data Vital Signs (Past 12 Hours) Vital Signs Temp Pulse Pulse Resp BP Pulse Ox O2 Del Method 03/25/24 07:24 36.8 C 70 19 166/81 H 96 Room Air 03/25/24 03:33 36.8 C 59 L 18 169/76 H 96 Room Air 03/24/24 23:00 36.8 C 72 16 128/74 96 Room Air 03/24/24 21:57 67
[2024-03-25 11:12] VITALS: TEMP 98.4; O2SAT 98
[2024-03-25 14:02] VITALS: BP 127/75; PULSE 18
--- NOTE | 2024-03-25 14:12 | Cardiology Progress Note ---
Date of Service March 25, 2024 Assessment & Plan (1) Precordial chest pain: (2) Hypertensive urgency: (3) Elevated troponin: (4) Hypertrophic cardiomyopathy: Plan 73-year-old female with chart history of hypertrophic cardiomyopathy and recent evaluation for untreated hypertension presented after symptoms of chest pressure and chest tightness at home marked elevation of blood pressure Concerns raised regarding hypertensive urgency and antihypertensive regimen initiated as well as anticoagulation due to elevated troponins Troponins are significantly elevated but flat No wall motion abnormalities on echocardiogram but severe LVH with apical predominance. EKGs with high voltage changes of left hypertrophy and strain ST segment abnormalities, ischemia not excluded Plan: Patient referred for diagnostic coronary angiography today. Risk factors include current symptoms hypertension abnormal EKG elevated troponin and hyperlipidemia Further recommendations pending results of imaging. Patient to remain n.p.o. until complete Will continue to treat hypertension present. Goal given small LV cavity and hyperdynamic LV function will be upward titration of beta-flores possible reduction in VICKEY inhibitor Hyperlipidemia will warrant treatment Cardiology will follow 03/25/2024 Clinically stable. Blood pressure is much improved on current regimen Echocardiogram and cardiac catheterization findings consistent with hypertrophic obstructive cardiomyopathy 1. Hypertension with hypertensive urgency. Continue metoprolol succinate 50 mg twice per day. Given small LV cavity size we will avoid afterload reduction with lisinopril would not restart recommend adding amlodipine 2.5 mg nightly for additional hypertension control. 2. Hypertrophic cardiomyopathy: No significant obstructive disease on coronary angiography. Troponins elevated secondary to LVH and hypertensive urgency. Continue metoprolol succinate 50 mg twice per day Will need outpatient cardiac follow-up. Discussed with patient and daughter screening of first-degree relatives. Plan cardiac MRI to assess degree of myocardial scar 3. Mild coronary atherosclerosis: Recommend continued lipid reduction, aspirin 81 mg per day Patient needs cardiac follow-up 4 to 6 weeks Admission and Anticipated Discharge Date Admission Date: March 23, 2024 Subjective Patient was seen and examined. Chart and medication telemetry is reviewed. Blood pressure much better controlled. No symptoms overnight. No arrhythmias on telemetry Tolerated coronary angiography well yesterday Right radial access site healing well Physical Exam Constitutional: WD/WN, vitals as above no acute distress Eyes: PERRL, conjunctivae normal, anicteric sclerae ENMT: external ear and nose normal, oropharynx normal Neck: trachea midline, no thyromegaly Respiratory: normal respiratory effort, lungs clear to auscultation Cardiovascular: Rate/Rhythm: regular rate and regular rhythm Heart Sounds: normal S1, normal S2 and + murmur (Grade 2 over 6 systolic) Vessels: no JVD Extremities: no edema Gastrointestinal (Abdomen): normal bowel sounds, soft, nontender, no hepatosplenomegaly Musculoskeletal: no cyanosis or clubbing, extremities motor strength 5/5 Results & Data Vital Signs (Past 12 Hours) Vital Signs Temp Pulse Pulse Pulse Resp BP BP 03/25/24 14:00 36.9 C 65 18 L 19 120/74 127/75 03/25/24 13:35 55 L 03/25/24 11:11 36.9 C 65 19 120/74 03/25/24 11:00 36.9 C 65 19 120/74 03/25/24 07:24 36.8 C 70 19 166/81 H 03/25/24 03:33 36.8 C 59 L 18 169/76 H Pulse Ox O2 Del Method 03/25/24 14:00 98 03/25/24 13:35 03/25/24 11:11 98 Room Air 03/25/24 11:00 98 Room Air 03/25/24 07:24 96 Room Air 03/25/24 03:33 96 Room Air
--- NOTE | 2024-03-25 15:10 | Discharge Summary ---
Date of Service March 25, 2024 Admission HPI Per Admitting Provider Patient is a 73-year-old female who presents to the emergency room with above complaint. Patient has known she has had some high blood pressure for almost a year. Just established a new primary care provider this month and was started on lisinopril for elevated blood pressure. Today she could tell that something just was not right. She felt a little dizzy felt a little nauseated and had her neighbor bring her to the emergency room. In the emergency room was noted to be quite hypertensive and a significantly elevated troponin. She referred to our service for further evaluation. Time my evaluation patient states that her dizziness is somewhat better but still little nauseated. She denies any shortness of breath or chest pain. She states the symptoms started suddenly today. Yesterday and prior to she was eating and drinking well. Doing her usual activities. No new problems with her bowels or bladder. No swollen or tender joints. No swelling in her hands arms legs or feet. She denies any uppe r respiratory infection symptoms. She is aware that she has a hypertrophic cardiomyopathy. Has not had that followed up for a few years. She does state that she has a younger brother who just recently of some sort of heart issue she was not sure of the details. She has never smoked does not use any significant amounts of alcohol. Admission Exam Per Admitting Provider Constitutional: Alert, ill in appearance, nontoxic HEENT: Mucous membranes moist. Sclera clear Neck: Soft, no adenopathy Lungs: Clear to auscultation, decreased, no wheezes rales or rhonchi CV: S1-S2, regular, grade 4/6 blowing systolic murmur Abdomen: Soft, nontender, nondistended Extremities: No significant edema Musculoskeletal: No significant joint tenderness Neuro: No focal deficits Psych: Cooperative, normal mood Principal Diagnosis Hypertensive urgency Hypertrophic Cardiomyopathy Discharge Exam Constitutional: Alert, ill in appearance, nontoxic HEENT: Mucous membranes moist. Sclera clear Neck: Soft, no adenopathy Lungs: Clear to auscultation, decreased, no wheezes rales or rhonchi CV: S1-S2, regular, systolic murmur Abdomen: Soft, nontender, nondistended Extremities: No significant edema Musculoskeletal: No significant joint tenderness Neuro: No focal deficits Psych: Cooperative, normal mood Discharge Data Allergies Allergy/AdvReac Type Severity Reaction Status Date / Time Penicillins AdvReac Severe Hives Verified 03/23/24 20:36 Consultations 03/23/24 18:15 ED Decision to Admit Stat 03/23/24 20:24 Consult Cardiology Routine Procedures Performed Operation Date: 03/24/24 12:00 Actual Procedures p Cineradiography w/Routine Exam(Right) - Joe King MD s Cath, Left with Cors and Vent - Joe King MD Ordered Studies 03/23/24 17:13 CT head/brain wo con Stat 03/24/24 10:47 CL Cath Imgs for PACS use only Routine Hospital Course (1) Non-STEMI (non-ST elevated myocardial infarction): (2) Hypertensive urgency: (3) Hypertrophic cardiomyopathy: (4) Hyperglycemia: (5) Hyperlipidemia: Plan Patient presents with dizziness and nausea Recent diagnosis of hypertension on lisinopril 10 mg once a day Blood pressure elevated to SBP of 200s on presentation High-sensitivity troponin elevated to 685; down trended to 597 EKG reviewed; normal sinus rhythm; nonspecific ST and T wave changes. LVH by voltage criteria Echocardiogram shows EF of 55 to 60% with grade 1 diastolic dysfunction. LVH is asymmetric greatest at the apex. Severe concentric LVH noted. Status post cardiac cath on 03/24; nonobstructive CAD. Patient was started on 50 mg twice a day. Lisinopril was discontinued. Cardiology recommended addition of 2.5 mg of amlodipine at night for better blood pressure control. Patient will need outpatient follow-up with cardiology. Plan for cardiac MRI to assess degree of myocardial scar as outpatient. Patient was also started on aspirin and Lipitor at the time of discharge. Please note the above document was generated using voice recognition software. It may contain grammatical, syntax or spelling errors. Any formal questions or concerns about the content, text or information contained within the body of this dictation should be directly addressed to the provider for clarification Total Time Total Time Spent Total Time Spent (In Minutes): 45 Total Time Includes: Examination of the Patient, Discharge Planning, Medication Reconciliation, Communication With Other Providers and Other Discharge Plan Discharge Items Patient Disposition: Home - Self-Care Reason For Visit: NSTEMI Discharge Diagnosis: Hypertensive urgency Hypertrophic obstructive cardiomyopathy Activity: Resume your previous activity Non-emergency contact: Primary Care Provider Call non-emergency contact if: you have any medication questions and your symptoms worsen Follow-up/Referrals: Daysi Benson DO [Primary Care Provider] - (Date & Time 03/30/2024 10:15 AM Provider Nurse Freddy Foster [address] [facility] [address] [facility] Date & Time 03/30/2024 10:40 AM Provider Daysi Benson DO [facility] [address] [facility] ) Diet: Regular Addtl Attending Provider Instructions: You were admitted to the hospital due to high blood pressure. You underwent evaluation by cardiology during the hospitalization as well as underwent cardiac cath. You are prescribed following medications: 1) Take aspirin 81 mg once a day 2) Lipitor 80 mg once a day 3) Metoprolol 50 mg twice a day 4) Start taking amlodipine 2.5mg at night for BP control Stop taking lisinopril Follow-up with your primary care doctor as scheduled as well as cardiology. Pending Studies at Discharge: No Stand-Alone Forms: [employer] [place], Smoking Cessation Medications and DC Order Prescriptions: New metoprolol succinate 50 mg Tablet Extended Release 24 Hr 50 mg PO BID Qty: 60 0RF aspirin 81 mg Tablet,Delayed Release (Dr/Ec) 81 mg PO QAM Qty: 30 0RF atorvastatin [Lipitor] 80 mg tablet 80 mg PO DAILY Qty: 30 0RF amlodipine 2.5 mg tablet 2.5 mg PO HS Qty: 30 0RF Continued sertraline 50 mg tablet 50 mg PO DAILY Qty: 30 11RF Discontinued lisinopril 10 mg tablet 10 mg PO QAM Discharge Orders: Discharge Order (Routine); Ordered 03/25/24 Ordered By: Prince Kat/Other Patient Handouts: Communicating About Pain, Blood Pressure Check Steps Admission Data Admit Date/Time: 03/23/24 18:37 Attending Provider: Prince Denton Admit Provider: Christopher Lehman Primary Care Provider: Daysi Benson Other Providers: Christopher Lehman; Krzysztof Claros Other Interventions: Discharge Summary Assessment (RN) Last Done: 03/25/24 14:00
--- NOTE | 2024-03-25 15:29 | Electrocardiogram Report ---
Test Reason : Blood Pressure : */* mmHG Vent. Rate : 65 BPM Atrial Rate : 65 BPM P-R Int : 162 ms QRS Dur : 110 ms QT Int : 456 ms P-R-T Axes : 24 -35 120 degrees QTcB Int : 474 ms Normal sinus rhythm Possible Left atrial enlargement Left axis deviation Left ventricular hypertrophy with repolarization abnormality Abnormal ECG When compared with ECG of 24-Mar-2024 06:14, ST less depressed in Lateral leads T wave inversion less evident in Anterolateral leads Confirmed by Elkin Payne ([id number]) on 03/25/2024 3:28:29 PM Referred By: REFERRED SELF Confirmed By: Elkin Payne
== END 2024-03-25 14:44 | disposition home or self-care (01) | DRG 281 ==
LOC: ED 16:20 → SUATTDRO 18:37 → 2S 18:37